=== PATIENT | male | born 1960 | race Caucasian/White ===

== ENCOUNTER → 2019-03-12 | Outpatient (CLI) | payer OTHER ==
--- NOTE | 2019-03-12 08:08 | US ---
EXAMINATION TYPE: US abdomen complete DATE OF EXAM: 03/12/2019 COMPARISON: NONE CLINICAL HISTORY: R94.5 Abnormal LFT F10.10 Alcohol Abuse. Pt states recent abnormal LFT's, ETOH abus e EXAM MEASUREMENTS: Liver Length: 16.7 cm Gallbladder Wall: 0.2 cm CBD: 0.4 cm Spleen: 9.0 cm Right Kidney: 13.3 x 4.5 x 6.2 cm Left Kidney: 12.7 x 5.6 x 4.8 cm Pancreas: wnl, tail obscured by overlying bowel gas Liver: Echogenic when compared to right kidney, coarse echotexture, heterogeneous. This most commonl y relates to hepatic steatosis and limits evaluation for hepatic masses. Gallbladder: wnl Evidence for sonographic Milan's sign: No CBD: wnl Spleen: Splenic granulomas are incidentally noted as echogenic foci in the splenic parenchyma. Right Kidney: wnl Left Kidney: wnl Upper IVC: wnl Abd Aorta: Atherosclerosis The liver is heterogenous. The intrahepatic portion of the IVC and proximal abdominal aorta are with in normal limits of size. There is no evidence of cholelithiasis. Common bile duct is unremarkable. The visualized portions of the pancreas are homogenous. The spleen demonstrates benign granulomas. Kidneys are symmetric and free of hydronephrosis. No renal lesions are seen. IMPRESSION: 1. Sonographic findings most commonly related to hepatic steatosis. Correlate with liver function eric t results. 2. Benign splenic granulomas.
== END | disposition home or self-care (01) ==
LOC: RADUSWWP 06:52
PROVIDERS: ATTEND Family Medicine
DX: D73.89 Other diseases of spleen (principal); R94.5 Abnormal results of liver function studies; F10.10 Alcohol abuse, uncomplicated
CPT/HCPCS: 76700

== ENCOUNTER → 2019-03-30 | Outpatient (CLI) | payer OTHER ==
--- NOTE | 2019-03-30 12:16 | CTL ---
EXAMINATION TYPE: CT Low Dose Lung DATE OF EXAM ORDERED: 03/30/2019 HISTORY: . Lung cancer screening CT DLP: [address] CTDI: 1.80 mGy Automated exposure control for dose reduction was used. SCREENING VISIT: COMPARISON: Ultrasound 03/12/2019 TECHNIQUE: Low dose computed tomography scan was performed through the chest at 1 mm thick sections a nd reconstructed images in the coronal plane at [address] DIAGNOSTIC QUALITY: Satisfactory FINDINGS: LUNG NODULES: There is a 2 mm subpleural nodule right upper lobe anterior segment within the superior segment of th e left upper lobe. These are too small to characterize. Most likely benign. Additional subpleural nod ule anterior segment left upper lobe and posterior margin right lung apex measuring 3 mm. There is a 2 mm nodule in the medial margin superior segment right upper lobe LUNGS: Changes of COPD are noted. Biapical pleural. Pleural thickening along the left lower lobe seen. No co nsolidative pneumonia. Tiny pleural effusion on the left no pneumothorax. HEART: Heart size is normal. There is three-vessel coronary artery calcifications. Atherosclerotic changes a daniela with no diagnostic evidence of aneurysm calcification along the aortic valve also noted. OTHER FINDINGS: Hypertrophic and degenerative change of the vertebral column. IMPRESSION: 1. There are multiple less than 5 mm subpleural nodules too small to characterize. 2. Coronary artery three-vessel calcification with calcification at the root of the aortic valve. 3. There is a area of density adjacent to the right adrenal gland and IVC which appear somewhat hyper dense which likely is artifactual. However, given the limitations of the exam incomplete evaluation t his region a dedicated CT scan of the abdomen is recommended. FOLLOW UP CT CHEST RECOMMENDATION: Follow-up CT of the chest in one year. However, CT of the abdomen is recommended as discussed above. CT LUNG RAD: Lung-Rad 2 Benign Appearance or Behavior
== END | disposition home or self-care (01) ==
LOC: RADCTMAIN 11:16
PROVIDERS: ATTEND Family Medicine
DX: Z12.2 Encounter for screening for malignant neoplasm of respiratory organs (principal); F17.210 Nicotine dependence, cigarettes, uncomplicated; R91.1 Solitary pulmonary nodule; I25.10 Atherosclerotic heart disease of native coronary artery without angina pectoris; J98.4 Other disorders of lung

== ENCOUNTER → 2019-04-28 | Outpatient (CLI) | payer OTHER ==
--- NOTE | 2019-04-28 13:57 | ECHOS ---
STRESS ECHOCARDIOGRAM INDICATIONS: Atherosclerosis BASELINE HEART RATE: 115 BASELINE BLOOD PRESSURE: 155/57 MAXIMUM HEART RATE: 159 MAXIMUM BLOOD PRESSURE: 201/58 85% MPHR: 136 100% MPHR: 160 METS: 5.6 MAXIMUM STAGE REACHED: 2 TOTAL EXERCISE TIME: 4:00 CLINICAL INFORMATION: Baseline EKG revealed normal sinus rhythm without significant ST-T changes. There was some baseline artifact noted. The patient walked on a standard Donny protocol for a total duration of 4 minutes, achieved a maximal heart rate of 159 beats per minute developed fatigue and shortness of breath. He did not have any angina or arrhythmia. Exercise capacity was quite limited. He had some resting tachycardia to begin with. EKG did not reveal any ST-segment changes to indicate ischemia. Sinus tachycardia was noted. No arrhythmia of significance was noted. By EKG criteria, this is considered as a negative stress test with very limited exercise capacity in a 59-year-old gentleman. Baseline echo images revealed normal wall motion and wall thickening of all segments. At peak exercise, there was good augmentation of left ventricular wall motion and wall thickening of all segments suggesting that there is no evidence of any stress-induced ischemia on this study. IMPRESSION: 1. Limited exercise capacity, probably because of poor conditioning. However, the stress test is negative for ischemia on the basis of EKG criteria. 2. Normal stress echocardiogram with limited exercise capacity. MMODL / IJN: [id number] /
--- NOTE | 2019-04-28 16:40 | CT ---
EXAMINATION TYPE: CT abdomen pelvis w con DATE OF EXAM: 04/28/2019 COMPARISON: None INDICATION: Abnormal findings on diagnostic imaging DLP: 606.90 mGycm, Automated exposure control for dose reduction was used. CONTRAST: 100 ml mL of Isovue 300. Study performed with Oral Contrast TECHNIQUE: Axial images were obtained from above the diaphragm to the pubic rami in the axial plane a t 5 mm thick sections. Reconstructed images are reviewed on the computer in the coronal plane. FINDINGS: Limited CT sections are obtained the lung bases. The lung bases are clear. CT ABDOMEN: Liver: There is mild fatty infiltration of the liver. No discrete masses or cysts are evident. Spleen: Normal Pancreas: Normal Adrenal glands: The adrenal glands are normal. Gallbladder: Normal Kidneys: No masses are evident. No hydronephrosis is present. No cysts are present. Delayed images were obtained through the kidneys, which remain unremarkable. Aorta: Vascular calcification is within the aorta. Inferior vena cava: Normal. CT PELVIS: Loops of bowel within the abdomen and pelvis are normal. There are loops of bowel which are incom pletely distended or lack oral contrast limiting their evaluation. Note is made of a few scattered di verticuli throughout the colon. No acute diverticulitis is evident. Appendix: Normal as visualized. Urinary bladder: Normal. Genitourinary structures: Prostate is slightly prominent. Osseous structures: No suspicious lytic or sclerotic lesions. IMPRESSIONS: 1. Diverticulosis without acute diverticulitis. 2. Mild fatty infiltration of the liver.
== END | disposition home or self-care (01) ==
LOC: RADNMMAIN 09:15
PROVIDERS: ATTEND Family Medicine
DX: I70.0 Atherosclerosis of aorta (principal); K76.0 Fatty (change of) liver, not elsewhere classified; K57.90 Diverticulosis of intestine, part unspecified, without perforation or abscess without bleeding; R93.3 Abnormal findings on diagnostic imaging of other parts of digestive tract
CPT/HCPCS: 93351; 74160; Q9967

== ENCOUNTER → 2021-07-18 | Outpatient (CLI) | payer OTHER ==
--- NOTE | 2021-07-19 11:51 | CT ---
EXAMINATION TYPE: CT abdomen pelvis w con DATE OF EXAM: 07/18/2021 COMPARISON: CT 04/28/2019 HISTORY: abdominal pain, distention, hernia CT DLP: 770.7 mGycm Automated exposure control for dose reduction was used. TECHNIQUE: Helical acquisition of images from the lung bases through the pelvis have been completed. CONTRAST: Performed with Oral Contrast and with IV Contrast, patient injected with 100 mL of Isovue 300. FINDINGS: Small right inguinal hernia contains fat. Some coronary artery calcification suspected. LUNG BASES: Small focus of calcified pleural plaque is present sagittal image 89, axial image #9 of t he left hemidiaphragm level. AORTA: Atheromatous changes are present. LIVER/GB: There is low attenuation within the liver, mildly heterogeneous appearance is somewhat lobu lar wall, fluid is present about the gallbladder, gallbladder wall thickening is present possibly rel ated to the ascites. PANCREAS: No significant abnormality is seen. SPLEEN: No significant abnormality is seen. ADRENALS: No significant abnormality is seen. KIDNEYS: No significant abnormality is seen. REPRODUCTIVE ORGANS: Prostate is enlarged, slightly inferior impression present on the urinary bladde r BOWEL: Colonic interposition noted anterior to the liver, there is no evident bowel obstruction. The colon shows a somewhat thickened wall. FREE AIR: No Free Air visible. ASCITES: Small amount of ascites is present to include areas around the liver and spleen. Ascites is developed in the interval. PELVIC ADENOPATHY: None visualized. RETROPERITONEAL ADENOPATHY: No Retroperitoneal Adenopathy visible. URINARY BLADDER: Mild thickening of the urinary bladder wall could be related to chronic bladder obs truction OSSEOUS STRUCTURES: There is degenerative disc disease, facet arthropathy especially in the lower tigre mbar spine. IMPRESSION: NEW SMALL AMOUNT OF ASCITES. CORRELATE FOR POSSIBLE CIRRHOSIS. INDETERMINATE COLONIC WALL THICKENING, DIFFICULT TO EXCLUDE A MUCOSAL LESION, CORRELATE TO EXCLUDE COLITIS, FINDINGS COULD BE RELATED TO CI RRHOSIS, ADDITIONAL FINDINGS ABOVE.
== END | disposition home or self-care (01) ==
LOC: RADCTMAIN 14:19
PROVIDERS: ATTEND Family Medicine
DX: R18.8 Other ascites (principal)
CPT/HCPCS: 74177; Q9967

== ENCOUNTER 2021-09-26 07:49 | Day surgery (SDC) | payer OTHER ==
[2021-09-21 16:29] VITALS: BMI 23.8
[~2021-09-26 07:49] MED LIST: LACTATED RINGERS 1,000 ML IV SCH
[2021-09-26 08:56] VITALS: TEMP 98.1
[2021-09-26] MEDS ORDERED: PROPOFOL 10 MG/ML 20 ML VIAL IV ONE (09:38)
--- NOTE | 2021-09-26 09:47 | P.PCN ---
Date of Procedure: 09/26/21 Procedure(s) Performed: BRIEF HISTORY: Patient is a 61-year-old, pleasant, white male with history of alcohol abuse and recently diagnosed cirrhosis of the liver scheduled for an upper endoscopy as a part of screening for esophageal varices. PROCEDURE PERFORMED: Esophagogastroduodenoscopy. PREOPERATIVE DIAGNOSIS: Cirrhosis of the liver screening for esophageal varices. IV sedation per anesthesia. PROCEDURE: After informed consent was obtained, the patient was brought into the endoscopy unit. IV sedation was administered by Anesthesia under continuous monitoring. Initially the Olympus GIF-140 video endoscope was inserted into the mouth. Esophagus intubated without any difficulty. It was gradually advanced into the stomach and duodenum and carefully examined. The bulb and the second part of the duodenum appeared normal. The scope at this time was withdrawn to the stomach, adequately insufflated with air, and upon careful examination, mucosa of the antrum, appeared normal. There was mild portal hypertensive gastropathy seen. The rest of body, cardia and the fundus appeared normal. The scope was then withdrawn into the esophagus. The GE junction was located at 39 cm from the incisors. The esophagus appeared normal. There was small distal esophageal varices noted. There were no erosions or ulcerations seen and the patient tolerated the procedure well. IMPRESSION: 1. Small distal esophageal varices. 2. No evidence of gastric varices. 3. Mild portal hypertensive gastropathy RECOMMENDATIONS: The findings of this examination were discussed with the patient as well as his family. He was advised to have a repeat EGD in 2-3 years to follow-up esophageal varices.
[2021-09-26 09:57] VITALS: RESP 16
[2021-09-26 10:29] VITALS: BP 116/70; PULSE 68
== END 2021-09-26 10:57 | disposition home or self-care (01) ==
LOC: ORWHC2ENDO 07:49
PROVIDERS: ATTEND Internal Medicine Gastroenterology
DX: I85.00 Esophageal varices without bleeding (principal); K76.6 Portal hypertension; K70.30 Alcoholic cirrhosis of liver without ascites; F17.210 Nicotine dependence, cigarettes, uncomplicated; Z79.899 Other long term (current) drug therapy
CPT/HCPCS: 43235; J2704

== ENCOUNTER 2021-12-25 12:32 | Day surgery (SDC) | payer OTHER ==
[2021-12-25 13:15] LABS: Mean Platelet Volume 7.3; Platelet Count 549 k/uL (150-450)
[2021-12-25 13:16] VITALS: RESP 16; TEMP 98.2
[2021-12-25 13:27] LABS: African American GFR (CKD) >90 (>60 ml/min/1.73 sqM); Non-African American GFR(CKD) >90 (>60 ml/min/1.73 sqM)
[2021-12-25 13:29] LABS: INR 1.1 (<1.2); Prothrombin Time 11.5 sec (9.0-12.0)
[2021-12-25] MEDS ORDERED: LIDOCAINE 1% PF 10 MG/ML (5 ML AMP) SQ ONE (13:30)
[2021-12-25] MEDS: ALBUMIN HUMAN 25% 50 ML in EMPTY BAG 1 BAG IVPB SCH ×4 (13:47→14:37)
[2021-12-25 15:20] VITALS: BP 110/63; PULSE 69
[2021-12-26 00:54] LABS: Appearance,BF Slightly Cloudy
[2021-12-26 06:10] LABS: Albumin, Fluid Source Peritoneal Fluid; T. Protein, Body Fluid Source Peritoneal Fluid; Total Protein, Body Fluid 2980 mg/dL
--- NOTE | 2021-12-26 08:34 | US ---
Ultrasound-guided paracentesis. DATE OF EXAM: 12/25/2021 CLINICAL HISTORY: Ascites The procedure was discussed with the patient. The risks, complications, benefits, and alternatives we re discussed and any questions were answered. Informed consent was obtained. The patient was placed s upine on the ultrasound table and prepped and draped in the usual sterile fashion. All elements of maximal barrier technique were utilized. Under ultrasound guidance, access into the right lower quadrant was obtained, via the paracentesis catheter system and direct ultrasound guidanc e. Approximately 9.3 liters of straw-colored fluid was removed. The patient was stable throughout the pr ocedure and remained stable upon discharge from Department of Radiology. IMPRESSION: Successful paracentesis under ultrasound guidance.
== END 2021-12-25 15:25 | disposition home or self-care (01) ==
LOC: RADPROMAIN 12:32
PROVIDERS: ATTEND Internal Medicine Gastroenterology
DX: R18.8 Other ascites (principal)
CPT/HCPCS: 82042; 89050; 82565; 85049; 85610; 84157; 36415; 49083; J2001; P9047; 88108; 88305

== ENCOUNTER 2022-01-15 08:51 | Day surgery (SDC) | payer OTHER ==
[2022-01-15 09:38] LABS: Basophils # (A) 0.1 k/uL (0-0.2); Basophils % (A) 1 %; Eosinophils # (A) 0.5 k/uL (0-0.7); Eosinophils % (A) 6 %; HCT 40.4 % (39.0-53.0); HGB 13.1 gm/dL (13.0-17.5); Lymphocytes # (A) 1.3 k/uL (1.0-4.8); Lymphocytes % (A) 16 %; MCH 32.5 pg (25.0-35.0); MCHC 32.4 g/dL (31.0-37.0); MCV 100.5 fL (80.0-100.0); Mean Platelet Volume 7.1; Monocytes # (A) 0.9 k/uL (0-1.0); Monocytes % (A) 12 %; Neutrophils # (A) 4.7 k/uL (1.3-7.7); Neutrophils % (A) 61 %; Platelet Count 520 k/uL (150-450); RBC 4.02 m/uL (4.30-5.90); RDW 12.4 % (11.5-15.5); WBC 7.7 k/uL (3.8-10.6)
[2022-01-15 09:39] VITALS: RESP 16; TEMP 98.3
[2022-01-15 09:52] LABS: INR 1.1 (<1.2); Prothrombin Time 11.9 sec (9.0-12.0)
[2022-01-15 10:03] LABS: ALT 16 U/L (4-49); AST 33 U/L (17-59); African American GFR (CKD) >90 (>60 ml/min/1.73 sqM); Alkaline Phosphatase 145 U/L (38-126); Anion Gap 7 mmol/L; Blood Urea Nitrogen 11 mg/dL (9-20); Carbon Dioxide 25 mmol/L (22-30); Chloride 96 mmol/L (98-107); Glucose 95 mg/dL (74-99); Non-African American GFR(CKD) >90 (>60 ml/min/1.73 sqM); Potassium 4.9 mmol/L (3.5-5.1); Sodium 128 mmol/L (137-145); Total Protein 7.1 g/dL (6.3-8.2)
[2022-01-15] MEDS: ALBUMIN HUMAN 25% 50 ML in EMPTY BAG 1 BAG IVPB SCH ×4 (10:06→10:56)
[2022-01-15] MEDS ORDERED: LIDOCAINE 1% PF 10 MG/ML (5 ML AMP) SQ ONE (10:18)
[2022-01-15 12:02] VITALS: BP 134/71; PULSE 74
--- NOTE | 2022-01-15 13:41 | US ---
EXAMINATION TYPE: US paracentesis abd w/image DATE OF EXAM: 01/15/2022 COMPARISON: NONE HISTORY: Ascites. PROCEDURE: Maximal barrier technique was utilized. The skin overlying a suitable pocket of fluid was localized with ultrasound and the overlying skin was prepped and draped. Ultrasound was utilized with sterile technique. Lidocaine was used for local anesthesia and a skin estela made with a scalpel. Catheter was advanced under direct ultrasound guidance into a suitable pocket of fluid and approximately 10.8 lite rs of ascitic fluid were removed. Catheter was withdrawn and hemostasis achieved. There is no immed iate complication; the patient is discharged in stable condition. IMPRESSION: STATUS POST ULTRASOUND GUIDED PARACENTESIS FOR PALLIATION OF ASCITES. THIS PROCEDURE WA S PERFORMED BY THE UNDERSIGNED.
[2022-01-15 20:43] LABS: Appearance,BF Hazy
[2022-01-17 23:14] LABS: Albumin, Fluid Source Ascites; T. Protein, Body Fluid Source Ascites; Total Protein, Body Fluid 2760 mg/dL
== END 2022-01-15 12:02 | disposition home or self-care (01) ==
LOC: RADPROMAIN 08:51
PROVIDERS: ATTEND Internal Medicine Gastroenterology
DX: R18.8 Other ascites (principal); Z88.8 Allergy status to other drugs, medicaments and biological substances; Z79.899 Other long term (current) drug therapy; F17.200 Nicotine dependence, unspecified, uncomplicated; Z80.9 Family history of malignant neoplasm, unspecified
CPT/HCPCS: 88108; 88305; 80053; 82042; 89050; 85025; 85610; 84157; 36415; 49083; J2001; P9047

== ENCOUNTER 2022-01-29 08:46 | Day surgery (SDC) | payer OTHER ==
[2022-01-29 09:25] LABS: Mean Platelet Volume 6.6; Platelet Count 540 k/uL (150-450)
[2022-01-29 09:29] VITALS: RESP 16; TEMP 98.3
[2022-01-29 09:35] LABS: African American GFR (CKD) >90 (>60 ml/min/1.73 sqM); Non-African American GFR(CKD) >90 (>60 ml/min/1.73 sqM)
[2022-01-29 09:44] LABS: Prothrombin Time 10.6 sec (9.0-12.0)
[2022-01-29] MEDS: ALBUMIN HUMAN 25% 50 ML in EMPTY BAG 1 BAG IVPB SCH ×4 (09:59→11:50)
[2022-01-29] MEDS ORDERED: LIDOCAINE 1% PF 10 MG/ML (5 ML AMP) SQ ONE (10:30)
[2022-01-29 11:26] VITALS: BP 112/68; PULSE 69
--- NOTE | 2022-01-29 15:21 | US ---
EXAMINATION TYPE: US paracentesis abd w/image DATE OF EXAM: 01/29/2022 COMPARISON: NONE HISTORY: Ascites. PROCEDURE: Maximal barrier technique was utilized. The skin overlying a suitable pocket of fluid was localized with ultrasound and the overlying skin was prepped and draped. Ultrasound was utilized with sterile technique. Lidocaine was used for local anesthesia and a skin estela made with a scalpel. Catheter was advanced under direct ultrasound guidance into a suitable pocket of fluid and approximately 5.3 liter s of ascites fluid were removed. Catheter was withdrawn and hemostasis achieved. There is no immedi ate complication; the patient is discharged in stable condition. IMPRESSION: STATUS POST ULTRASOUND GUIDED PARACENTESIS FOR PALLIATION OF ASCITES. THIS PROCEDURE WA S PERFORMED BY THE UNDERSIGNED.
== END 2022-01-29 11:40 | disposition home or self-care (01) ==
LOC: RADPROMAIN 08:46
PROVIDERS: ATTEND Internal Medicine Gastroenterology
DX: R18.8 Other ascites (principal); Z88.8 Allergy status to other drugs, medicaments and biological substances; Z79.899 Other long term (current) drug therapy; F17.200 Nicotine dependence, unspecified, uncomplicated; Z80.9 Family history of malignant neoplasm, unspecified
CPT/HCPCS: 82565; 85049; 85610; 36415; 49083; J2001; P9047

== ENCOUNTER 2022-02-12 08:55 | Day surgery (SDC) | payer OTHER ==
[2022-02-12 09:42] LABS: Mean Platelet Volume 6.8; Platelet Count 457 k/uL (150-450)
[2022-02-12 09:49] VITALS: TEMP 97.6
[2022-02-12 09:53] LABS: INR 1.1 (<1.2); Prothrombin Time 11.7 sec (9.0-12.0)
[2022-02-12 09:57] LABS: African American GFR (CKD) >90 (>60 ml/min/1.73 sqM); Non-African American GFR(CKD) >90 (>60 ml/min/1.73 sqM)
[2022-02-12] MEDS: ALBUMIN HUMAN 25% 50 ML in EMPTY BAG 1 BAG IVPB SCH ×2 (11:04→11:24)
[2022-02-12 11:06] VITALS: RESP 18
[2022-02-12 11:43] VITALS: BP 112/62; PULSE 69
--- NOTE | 2022-02-12 15:56 | US ---
Ultrasound-guided paracentesis. DATE OF EXAM: 02/12/2022 CLINICAL HISTORY: Ascites The procedure was discussed with the patient. The risks, complications, benefits, and alternatives we re discussed and any questions were answered. Informed consent was obtained. The patient was placed s upine on the ultrasound table and prepped and draped in the usual sterile fashion. All elements of maximal barrier technique were utilized. Under ultrasound guidance, access into the right lower quadrant was obtained, via the paracentesis catheter system and direct ultrasound guidanc e. Approximately 9 liters of straw-colored fluid was removed. The patient was stable throughout the proc edure and remained stable upon discharge from Department of Radiology. IMPRESSION: Successful paracentesis under ultrasound guidance.
[2022-02-13 20:12] LABS: Appearance,BF Clear
[2022-02-14 01:12] LABS: Albumin, Fluid Source Paracentesis Fluid; T. Protein, Body Fluid Source Paracentesis Fluid; Total Protein, Body Fluid 2600 mg/dL
== END 2022-02-12 11:50 | disposition home or self-care (01) ==
LOC: RADPROMAIN 08:55
PROVIDERS: ATTEND Internal Medicine Gastroenterology
DX: R18.8 Other ascites (principal); Z88.8 Allergy status to other drugs, medicaments and biological substances; Z79.899 Other long term (current) drug therapy; F17.200 Nicotine dependence, unspecified, uncomplicated; Z80.9 Family history of malignant neoplasm, unspecified
CPT/HCPCS: 82042; 89050; 82565; 85049; 85610; 84157; 36415; 49083; P9047; 88108; 88305

== ENCOUNTER 2022-02-26 09:13 | Day surgery (SDC) | payer OTHER ==
[2022-02-26 09:42] LABS: Platelet Count 497 k/uL (150-450)
[2022-02-26 09:48] LABS: INR 1.1 (<1.2); Prothrombin Time 11.5 sec (9.0-12.0)
[2022-02-26 09:53] VITALS: TEMP 98.1
[2022-02-26 09:54] LABS: African American GFR (CKD) >90 (>60 ml/min/1.73 sqM); Non-African American GFR(CKD) >90 (>60 ml/min/1.73 sqM)
[2022-02-26] MEDS: ALBUMIN HUMAN 25% 50 ML in EMPTY BAG 1 BAG IVPB SCH ×4 (10:02→11:08)
[2022-02-26 11:44] VITALS: BP 109/63; PULSE 70; RESP 17
--- NOTE | 2022-02-26 13:40 | US ---
Ultrasound-guided paracentesis. DATE OF EXAM: 02/26/2022 CLINICAL HISTORY: Ascites The procedure was discussed with the patient. The risks, complications, benefits, and alternatives we re discussed and any questions were answered. Informed consent was obtained. The patient was placed s upine on the ultrasound table and prepped and draped in the usual sterile fashion. All elements of maximal barrier technique were utilized. Under ultrasound guidance, access into the right lower quadrant was obtained, via the paracentesis catheter system and direct ultrasound guidanc e. Approximately 9 liters of straw-colored fluid was removed. The patient was stable throughout the proc edure and remained stable upon discharge from Department of Radiology. IMPRESSION: Successful paracentesis under ultrasound guidance.
== END 2022-02-26 11:35 | disposition home or self-care (01) ==
LOC: RADPROMAIN 09:13
PROVIDERS: ATTEND Internal Medicine Gastroenterology
DX: R18.8 Other ascites (principal); Z88.8 Allergy status to other drugs, medicaments and biological substances; Z79.899 Other long term (current) drug therapy; F17.200 Nicotine dependence, unspecified, uncomplicated; Z80.9 Family history of malignant neoplasm, unspecified
CPT/HCPCS: 82565; 85049; 85610; 36415; 49083; P9047

== ENCOUNTER 2022-03-08 16:33 | Emergency (ER) | payer OTHER ==
[2022-03-08] MEDS ORDERED: SODIUM CHLORIDE 0.9% 1,000 ML IV STA (18:23)
--- NOTE | 2022-03-08 18:47 | ED ---
General Adult HPI - General Chief complaint: Recheck/Abnormal Lab/Rx Stated complaint: low sodium Time Seen by Provider: 03/08/22 18:12 Source: patient Mode of arrival: ambulatory Limitations: no limitations - History of Present Illness Initial comments: Dictation was produced using [employer] dictation software. please excuse any grammatical, word or spelling errors. Chief Complaint: 61-year-old male past medical history of liver cirrhosis, liver failure presents emergency department for hyponatremia History of Present Illness: 1-year-old male he presents emergency department for abnormal outpatient lab. He was told that his sodium is very low. He had labs drawn here in our facility in the outpatient lab showed a sodium of 114. Patient had his labs drawn after being seen in the office on Friday for surveillance blood work. Patient gets paracenteses every 2 weeks. Patient states that he feels like he is having accumulation of ascitic fluid in his abdomen again. Patient is due for paracentesis soon. Denies any fever. Denies any pain complaints. No shortness of breath. The ROS documented in this emergency department record has been reviewed and confirmed by me. Those systems with pertinent positive or negative responses have been documented in the HPI. All other systems are other negative and/or noncontributory. PHYSICAL EXAM: General Impression: Alert and oriented x3, not in acute distress HEENT: Normocephalic atraumatic, extra-ocular movements intact, pupils equal and reactive to light bilaterally, mucous membranes moist. Cardiovascular: Heart regular rate and rhythm Chest: Able to complete full sentences, no retractions, no tachypnea Abdomen: abdomen soft, non-tender, non-distended, no organomegaly, positive fluid wave Musculoskeletal: Pulses present and equal in all extremities, no peripheral edema Motor: no focal deficits noted Neurological: CN II-XII grossly intact, no focal motor or sensory deficits noted Skin: Intact with no visualized rashes Psych: Normal affect and mood ED course: Male presents emergency department for hyponatremia. Patient has history of liver cirrhosis. He gets paracentesis every 2 weeks. Vital signs upon arrival are within acceptable limits. Labs were rechecked. CBC is unremarkable. Sodium is 115. Metabolic panel was otherwise unremarkable. Patient given IV fluids. Patient be admitted for hyponatremia. Patient having any symptoms of severe hyponatremia. He is well-appearing at bedside without any complaints. No indication for rapid sodium correction. Laboratory evaluation obtained. CBC is unremarkable. Metabolic panel shows sodium of 1:15. There is appeared to be a non-gap acidosis. Patient started on IV fluids. Hyponatremia slightly hypervolemic secondary to cirrhosis. Patient be admitted to [facility] for further care. EKG interpretation: Ventricular rate 63, sinus rhythm, KY interval 180, QS 104, QTC 395. No KY prolongation, no QTC prolongation, no ST or T-wave changes noted. Overall, this EKG is unremarkable - Related Data Home Medications Medication Instructions Recorded Confirmed Losartan Potassium [Cozaar] 100 mg PO DAILY 07/07/19 03/08/22 dilTIAZem HCL [Diltiazem ER] 120 mg PO DAILY 07/07/19 03/08/22 Folic Acid 1 mg PO DAILY 09/21/21 03/08/22 Furosemide [Lasix] 40 mg PO BID@0600,1400 09/21/21 03/08/22 Spironolactone [Aldactone] 100 mg PO DAILY 09/21/21 03/08/22 Pantoprazole [Protonix] 40 mg PO DAILY 12/17/21 03/08/22 buPROPion XL [Wellbutrin XL] 150 mg PO DAILY 03/08/22 03/08/22 Allergies Allergy/AdvReac Type Severity Reaction Status Date / Time lisinopril AdvReac Rapid Verified 03/08/22 19:20 Heart Rate/itching Review of Systems ROS Statement: Those systems with pertinent positive or pertinent negative responses have been documented in the HPI. ROS Other: All systems not noted in ROS Statement are negative. Past Medical History Past Medical History: Hypertension, Liver Disease, Osteoarthritis (OA) History of Any Multi-Drug Resistant Organisms: None Reported Past Surgical History: No Surgical Hx Reported Additional Past Surgical History / Comment(s): COLONOSCOPY, paracentesis Past Anesthesia/Blood Transfusion Reactions: No Reported Reaction Past Psychological History: No Psychological Hx Reported Smoking Status: Current every day smoker Past Alcohol Use History: None Reported Past Drug Use History: None Reported - Past Family History Mother Family Medical History: Cancer Brother(s) Family Medical History: Cancer General Exam Limitations: no limitations Course Vital Signs 03/08/22 03/08/22 17:00 19:36 Temperature 98.5 F Pulse Rate 69 80 Respiratory 22 20 Rate Blood Pressure 101/58 103/67 O2 Sat by Pulse 100 98 Oximetry Medical Decision Making - Lab Data Result diagrams: 03/08/22 18:38 03/08/22 18:38 Lab Results 03/08/22 03/08/22 Range/Units 18:38 18:38 WBC 10.0 (3.8-10.6) k/uL RBC 3.57 L (4.30-5.90) m/uL Hgb 11.6 L (13.0-17.5) gm/dL Hct 34.7 L (39.0-53.0) % MCV 97.2 (80.0-100.0) fL MCH 32.5 (25.0-35.0) pg MCHC 33.5 (31.0-37.0) g/dL RDW 13.4 (11.5-15.5) % Plt Count 611 H (150-450) k/uL MPV 7.3 Neutrophils % 67 % Lymphocytes % 14 % Monocytes % 12 % Eosinophils % 3 % Basophils % 1 % Neutrophils # 6.7 (1.3-7.7) k/uL Lymphocytes # 1.4 (1.0-4.8) k/uL Monocytes # 1.2 H (0-1.0) k/uL Eosinophils # 0.3 (0-0.7) k/uL Basophils # 0.1 (0-0.2) k/uL Sodium 115 L* (137-145) mmol/L Potassium 5.2 H (3.5-5.1) mmol/L Chloride 87 L (98-107) mmol/L Carbon Dioxide 19 L (22-30) mmol/L Anion Gap 9 mmol/L BUN 13 (9-20) mg/dL Creatinine 0.85 (0.66-1.25) mg/dL Est GFR (CKD-EPI)AfAm >90 (>60 ml/min/1.73 sqM) Est GFR (CKD-EPI)NonAf >90 (>60 ml/min/1.73 sqM) Glucose 86 (74-99) mg/dL Calcium 8.6 (8.4-10.2) mg/dL Magnesium 1.7 (1.6-2.3) mg/dL Critical Care Time Critical Care Time: Yes Total Critical Care Time: 33 Disposition Clinical Impression: Hyponatremia Disposition: ADMITTED IP TO THIS HOSP Condition: Fair Referrals: Nitin Ndiaye DO [Primary Care Provider] - 1-2 days Decision Time: 19:45
[2022-03-08 19:02] LABS: Basophils # (A) 0.1 k/uL (0-0.2); Basophils % (A) 1 %; Eosinophils # (A) 0.3 k/uL (0-0.7); Eosinophils % (A) 3 %; HCT 34.7 % (39.0-53.0); HGB 11.6 gm/dL (13.0-17.5); Lymphocytes # (A) 1.4 k/uL (1.0-4.8); Lymphocytes % (A) 14 %; MCH 32.5 pg (25.0-35.0); MCHC 33.5 g/dL (31.0-37.0); MCV 97.2 fL (80.0-100.0); Mean Platelet Volume 7.3; Monocytes # (A) 1.2 k/uL (0-1.0); Monocytes % (A) 12 %; Neutrophils # (A) 6.7 k/uL (1.3-7.7); Neutrophils % (A) 67 %; Platelet Count 611 k/uL (150-450); RBC 3.57 m/uL (4.30-5.90); RDW 13.4 % (11.5-15.5)
[2022-03-08 19:06] LABS: African American GFR (CKD) >90 (>60 ml/min/1.73 sqM); Anion Gap 9 mmol/L; Blood Urea Nitrogen 13 mg/dL (9-20); Calcium 8.6 mg/dL (8.4-10.2); Carbon Dioxide 19 mmol/L (22-30); Chloride 87 mmol/L (98-107); Glucose 86 mg/dL (74-99); Magnesium 1.7 mg/dL (1.6-2.3); Non-African American GFR(CKD) >90 (>60 ml/min/1.73 sqM); Potassium 5.2 mmol/L (3.5-5.1)
[2022-03-08 19:12] LABS: Sodium 115 mmol/L (137-145)
[2022-03-08] MEDS ORDERED: SODIUM CHLORIDE 0.9% 1,000 ML IV SCH (19:45)
[2022-03-08] MEDS ORDERED: NALOXONE 0.4 MG/ML 1 ML VIAL IV PRN (19:45)
[2022-03-08 21:13] LABS: Prothrombin Time 10.7 sec (9.0-12.0)
[2022-03-08 21:14] LABS: ALT 16 U/L (4-49); AST 34 U/L (17-59); African American GFR (CKD) >90 (>60 ml/min/1.73 sqM); Albumin 2.8 g/dL (3.5-5.0); Alkaline Phosphatase 121 U/L (38-126); Anion Gap 9 mmol/L; Blood Urea Nitrogen 12 mg/dL (9-20); Calcium 8.2 mg/dL (8.4-10.2); Carbon Dioxide 18 mmol/L (22-30); Chloride 89 mmol/L (98-107); Glucose 83 mg/dL (74-99); Non-African American GFR(CKD) >90 (>60 ml/min/1.73 sqM); Potassium 5.1 mmol/L (3.5-5.1); Total Bilirubin 0.8 mg/dL (0.2-1.3); Total Protein 5.1 g/dL (6.3-8.2)
[2022-03-08 21:33] LABS: Sodium 116 mmol/L (137-145)
--- NOTE | 2022-03-08 21:35 | ED ---
Medical Decision Making - Medical Decision Making 61 male to the ED c/o abdominal pain with ascites, significantly low Na, normal MS patient is acting appropriately. Patient at this point will be transferred to [facility] for GI coverage, patient was denied admission or Hospital for lack of GI, - Lab Data Result diagrams: 03/08/22 18:38 03/08/22 20:43 Lab Results 03/08/22 03/08/22 03/08/22 Range/Units 18:38 18:38 20:43 WBC 10.0 (3.8-10.6) k/uL RBC 3.57 L (4.30-5.90) m/uL Hgb 11.6 L (13.0-17.5) gm/dL Hct 34.7 L (39.0-53.0) % MCV 97.2 (80.0-100.0) fL MCH 32.5 (25.0-35.0) pg MCHC 33.5 (31.0-37.0) g/dL RDW 13.4 (11.5-15.5) % Plt Count 611 H (150-450) k/uL MPV 7.3 Neutrophils % 67 % Lymphocytes % 14 % Monocytes % 12 % Eosinophils % 3 % Basophils % 1 % Neutrophils # 6.7 (1.3-7.7) k/uL Lymphocytes # 1.4 (1.0-4.8) k/uL Monocytes # 1.2 H (0-1.0) k/uL Eosinophils # 0.3 (0-0.7) k/uL Basophils # 0.1 (0-0.2) k/uL PT 10.7 (9.0-12.0) sec INR 1.0 (<1.2) APTT 27.0 (22.0-30.0) sec Sodium 115 L* (137-145) mmol/L Potassium 5.2 H (3.5-5.1) mmol/L Chloride 87 L (98-107) mmol/L Carbon Dioxide 19 L (22-30) mmol/L Anion Gap 9 mmol/L BUN 13 (9-20) mg/dL Creatinine 0.85 (0.66-1.25) mg/dL Est GFR (CKD-EPI)AfAm >90 (>60 ml/min/1.73 sqM) Est GFR (CKD-EPI)NonAf >90 (>60 ml/min/1.73 sqM) Glucose 86 (74-99) mg/dL Calcium 8.6 (8.4-10.2) mg/dL Magnesium 1.7 (1.6-2.3) mg/dL Total Bilirubin (0.2-1.3) mg/dL AST (17-59) U/L ALT (4-49) U/L Alkaline Phosphatase (38-126) U/L Total Protein (6.3-8.2) g/dL Albumin (3.5-5.0) g/dL 03/08/22 03/08/22 Range/Units 20:43 20:43 WBC (3.8-10.6) k/uL RBC (4.30-5.90) m/uL Hgb (13.0-17.5) gm/dL Hct (39.0-53.0) % MCV (80.0-100.0) fL MCH (25.0-35.0) pg MCHC (31.0-37.0) g/dL RDW (11.5-15.5) % Plt Count (150-450) k/uL MPV Neutrophils % % Lymphocytes % % Monocytes % % Eosinophils % % Basophils % % Neutrophils # (1.3-7.7) k/uL Lymphocytes # (1.0-4.8) k/uL Monocytes # (0-1.0) k/uL Eosinophils # (0-0.7) k/uL Basophils # (0-0.2) k/uL PT (9.0-12.0) sec INR (<1.2) APTT (22.0-30.0) sec Sodium 116 L* (137-145) mmol/L Potassium 5.1 (3.5-5.1) mmol/L Chloride 89 L (98-107) mmol/L Carbon Dioxide 18 L (22-30) mmol/L Anion Gap 9 mmol/L BUN 12 (9-20) mg/dL Creatinine 0.75 0.77 (0.66-1.25) mg/dL Est GFR (CKD-EPI)AfAm >90 (>60 ml/min/1.73 sqM) Est GFR (CKD-EPI)NonAf >90 (>60 ml/min/1.73 sqM) Glucose 83 (74-99) mg/dL Calcium 8.2 L (8.4-10.2) mg/dL Magnesium (1.6-2.3) mg/dL Total Bilirubin 0.8 (0.2-1.3) mg/dL AST 34 (17-59) U/L ALT 16 (4-49) U/L Alkaline Phosphatase 121 (38-126) U/L Total Protein 5.1 L (6.3-8.2) g/dL Albumin 2.8 L (3.5-5.0) g/dL - Radiology Data Radiology results: report reviewed (Prior computed tomography scan does show liver cirrhosis) Disposition Clinical Impression: Hyponatremia, Ascites, Liver cirrhosis Disposition: OTHER INSTITUTION NOT DEFINED Condition: Fair Is patient prescribed a controlled substance at d/c from ED?: No Referrals: Nitin Ndiaye DO [Primary Care Provider] - 1-2 days - Out of Hospital Transfer - Req. Specs Out of Hospital Transfer - Requested Specifics: Other Emergency Center ([facility])
[2022-03-08 23:43] VITALS: RESP 16
[2022-03-09 00:28] VITALS: BP 98/60; PULSE 75; TEMP 98.6
== END 2022-03-09 00:28 | disposition critical access hospital (66) ==
LOC: EC 16:33 → UNDOADMIN 19:45 → 3SCARD 19:45 → EC 21:57 → 3SCARD 21:57 → EC 23:09
DX: E87.1 Hypo-osmolality and hyponatremia (principal); K74.60 Unspecified cirrhosis of liver; R18.8 Other ascites; I10 Essential (primary) hypertension
CPT/HCPCS: 36415; 80048; 80053; 82575; 83735; 83930; 85025; 85610; 85730; 93005; 96360; 96361; 99284

== ENCOUNTER → 2022-03-08 | Outpatient (CLI) | payer OTHER ==
[2022-03-08 13:34] LABS: Basophils % (A) 0 %; Eosinophils # (A) 0.1 k/uL (0-0.7); Eosinophils % (A) 2 %; HCT 35.8 % (39.0-53.0); HGB 11.9 gm/dL (13.0-17.5); Lymphocytes # (A) 0.9 k/uL (1.0-4.8); Lymphocytes % (A) 11 %; MCHC 33.1 g/dL (31.0-37.0); MCV 99.7 fL (80.0-100.0); Macrocytosis Slight; Mean Platelet Volume 8.6; Monocytes # (A) 1.1 k/uL (0-1.0); Monocytes % (A) 13 %; Neutrophils # (A) 6.3 k/uL (1.3-7.7); Neutrophils % (A) 71 %; Platelet Count 706 k/uL (150-450); RBC 3.59 m/uL (4.30-5.90); RDW 14.1 % (11.5-15.5); WBC 8.9 k/uL (3.8-10.6)
[2022-03-08 13:41] LABS: ALT 18 U/L (4-49); AST 40 U/L (17-59); African American GFR (CKD) >90 (>60 ml/min/1.73 sqM); Albumin 3.3 g/dL (3.5-5.0); Albumin/Globulin Ratio 1.4; Alkaline Phosphatase 162 U/L (38-126); Anion Gap 10 mmol/L; Blood Urea Nitrogen 11 mg/dL (9-20); Calcium 8.4 mg/dL (8.4-10.2); Carbon Dioxide 20 mmol/L (22-30); Chloride 84 mmol/L (98-107); Globulin 2.4 g/dL; Glucose 88 mg/dL (74-99); Non-African American GFR(CKD) >90 (>60 ml/min/1.73 sqM); Potassium 5.9 mmol/L (3.5-5.1); Total Bilirubin 1.2 mg/dL (0.2-1.3); Total Protein 5.7 g/dL (6.3-8.2)
[2022-03-08 13:47] LABS: Sodium 114 mmol/L (137-145)
[2022-03-08 20:01] LABS: % Iron Saturation 38.25 (15.00-50.00); Iron 113 ug/dL (65-175); Total Iron Binding Capacity 295 ug/dL (228-460)
== END | disposition home or self-care (01) ==
LOC: LABWHC1 10:43
PROVIDERS: ATTEND Physician Assistant
DX: D64.9 Anemia, unspecified (principal); E87.5 Hyperkalemia; E87.1 Hypo-osmolality and hyponatremia; E16.1 Other hypoglycemia
CPT/HCPCS: 36415; 80053; 82607; 82728; 82746; 83540; 83550; 85025

== ENCOUNTER 2022-04-23 08:46 | Day surgery (SDC) | payer OTHER ==
[2022-04-23 09:27] LABS: Mean Platelet Volume 8.5; Platelet Count 548 k/uL (150-450)
[2022-04-23 09:31] LABS: African American GFR (CKD) >90 (>60 ml/min/1.73 sqM); Non-African American GFR(CKD) >90 (>60 ml/min/1.73 sqM)
[2022-04-23 09:33] LABS: Prothrombin Time 11.1 sec (9.0-12.0)
[2022-04-23 09:44] VITALS: TEMP 97.9
[2022-04-23] MEDS: ALBUMIN HUMAN 25% 50 ML in EMPTY BAG 1 BAG IVPB SCH ×4 (10:02→10:50)
[2022-04-23 10:57] VITALS: RESP 16
[2022-04-23 11:54] VITALS: BP 121/69; PULSE 76
--- NOTE | 2022-04-23 12:46 | US ---
EXAMINATION TYPE: US paracentesis abd w/image DATE OF EXAM: 04/23/2022 COMPARISON: NONE HISTORY: Ascites. PROCEDURE: Maximal barrier technique was utilized. The skin overlying a suitable pocket of fluid was localized with ultrasound and the overlying skin was prepped and draped. Ultrasound was utilized with sterile technique. Lidocaine was used for local anesthesia and a skin estela made with a scalpel. Catheter was advanced under direct ultrasound guidance into a suitable pocket of fluid and approximately 9.7 liter s of ascites fluid were removed. Catheter was withdrawn and hemostasis achieved. There is no immedi ate complication; the patient is discharged in stable condition. IMPRESSION: STATUS POST ULTRASOUND GUIDED PARACENTESIS FOR PALLIATION OF ASCITES. THIS PROCEDURE WA S PERFORMED BY THE UNDERSIGNED.
== END 2022-04-23 11:50 | disposition home or self-care (01) ==
LOC: RADPROMAIN 08:46
PROVIDERS: ATTEND Internal Medicine Gastroenterology
DX: R18.8 Other ascites (principal)
CPT/HCPCS: 82565; 85049; 85610; 36415; 49083; P9047

== ENCOUNTER → 2022-04-30 | Outpatient (CLI) | payer OTHER ==
--- NOTE | 2022-04-30 11:38 | CA ---
Transthoracic Echo Report Name: Gerard Lala Age: 62 Gender: M : 1960 Exam Date: 04/30/2022 08:40 Exam Location: [place] [facility] Ht (in): 74 Wt (lb): 145 Ordering Physician: Nitin Ndiaye DO Attending/Referring Phys: Kimi Mace PAC Channeler Runner Dalila Nathan RDCS Procedure CPT: Indications: R53.83 fatigue Cardiac Hx: Technical Quality: Good Contrast 1: Total Dose (mL): Contrast 2: Total Dose (mL): MEASUREMENTS (Male / Female) Normal Values 2D ECHO LV Diastolic Diameter PLAX 3.5 cm 4.2 - 5.9 / 3.9 - 5.3 cm LV Systolic Diameter PLAX 2.6 cm IVS Diastolic Thickness 1.0 cm 0.6 - 1.0 / 0.6 - 0.9 cm LVPW Diastolic Thickness 1.0 cm 0.6 - 1.0 / 0.6 - 0.9 cm LV Relative Wall Thickness 0.6 RV Internal Dim ED PLAX 3.1 cm LA Systolic Diameter LX 2.4 cm 3.0 - 4.0 / 2.7 - 3.8 cm LA Volume 33.1 cm??? 18 - 58 / 22 - 52 cm??? M-MODE Aortic Root Diameter MM 3.0 cm MV E Point Septal Separation 0.5 cm AV Cusp Separation MM 1.5 cm DOPPLER AV Peak Velocity 144.8 cm/s AV Peak Gradient 8.4 mmHg MV Area PHT 3.0 cm??? Mitral E Point Velocity 69.6 cm/s Mitral A Point Velocity 83.1 cm/s Mitral E to A Ratio 0.8 MV Deceleration Time 250.2 ms MV E' Velocity 7.3 cm/s Mitral E to MV E' Ratio 9.5 TR Peak Velocity 222.4 cm/s TR Peak Gradient 19.8 mmHg Right Ventricular Systolic Press 24.8 mmHg FINDINGS Left Ventricle Left ventricular ejection fraction is estimated at 60-65 %. Small left ventricular cavity. Left ventricular wall thickness normal. Right Ventricle Normal right ventricular size and function. Right ventricular systolic pressure within normal limits. Right Atrium Normal right atrial size. Left Atrium Normal left atrial size. No evidence for an atrial septal defect. Mitral Valve Mitral valve thickened. No mitral stenosis, regurgitation or prolapse. Mitral annular calcification. Aortic Valve Trileaflet aortic valve. No aortic valve stenosis or regurgitation. Tricuspid Valve Trace to mild tricuspid regurgitation. Pulmonic Valve Structurally normal pulmonic valve. Pericardium Normal pericardium. No pericardial effusion. Aorta Normal size aortic root and proximal ascending aorta. CONCLUSIONS Normal LV systolic function Trace tricuspid regurgitation Mitral annular calcification without significant stenosis or regurgitation Previewed by: Dr. Bharath Liang MD (Electronically Signed) Final Date: 30 April 2022 11:37
== END | disposition home or self-care (01) ==
LOC: RADECHMAIN 08:33
PROVIDERS: ATTEND Family Medicine
DX: I07.1 Rheumatic tricuspid insufficiency (principal); I34.81 Nonrheumatic mitral (valve) annulus calcification
CPT/HCPCS: 93306

== ENCOUNTER 2022-05-08 12:31 | Day surgery (SDC) | payer OTHER ==
[2022-05-08 13:27] LABS: Mean Platelet Volume 7.1; Platelet Count 507 k/uL (150-450)
[2022-05-08 13:34] VITALS: TEMP 98.1
[2022-05-08 13:34] LABS: African American GFR (CKD) >90 (>60 ml/min/1.73 sqM); Non-African American GFR(CKD) >90 (>60 ml/min/1.73 sqM)
[2022-05-08 13:49] LABS: INR 0.9 (<1.2); Prothrombin Time 10.1 sec (9.0-12.0)
[2022-05-08] MEDS: ALBUMIN HUMAN 25% 50 ML in EMPTY BAG 1 BAG IVPB SCH ×4 (14:07→14:56)
[2022-05-08 15:03] VITALS: RESP 16
[2022-05-08 15:24] VITALS: BP 116/67; PULSE 78
--- NOTE | 2022-05-09 08:15 | US ---
Ultrasound-guided paracentesis. DATE OF EXAM: 05/08/2022 CLINICAL HISTORY: Ascites The procedure was discussed with the patient. The risks, complications, benefits, and alternatives we re discussed and any questions were answered. Informed consent was obtained. The patient was placed s upine on the ultrasound table and prepped and draped in the usual sterile fashion. All elements of maximal barrier technique were utilized. Under ultrasound guidance, access into the right lower quadrant was obtained, via the paracentesis catheter system and direct ultrasound guidanc e. Approximately 8.2 liters of straw-colored fluid was removed. The patient was stable throughout the pr ocedure and remained stable upon discharge from Department of Radiology. IMPRESSION: Successful paracentesis under ultrasound guidance.
== END 2022-05-08 15:25 | disposition home or self-care (01) ==
LOC: RADPROMAIN 12:31
PROVIDERS: ATTEND Internal Medicine Gastroenterology
DX: R18.8 Other ascites (principal)
CPT/HCPCS: 82565; 85049; 85610; 36415; 49083; P9047

== ENCOUNTER 2022-05-15 12:35 | Day surgery (SDC) | payer OTHER ==
[2022-05-15 13:28] LABS: Mean Platelet Volume 7.4; Platelet Count 516 k/uL (150-450)
[2022-05-15 13:35] LABS: African American GFR (CKD) >90 (>60 ml/min/1.73 sqM); Non-African American GFR(CKD) >90 (>60 ml/min/1.73 sqM)
[2022-05-15 13:51] LABS: Prothrombin Time 10.9 sec (9.0-12.0)
[2022-05-15 13:58] VITALS: RESP 18
[2022-05-15] MEDS: ALBUMIN HUMAN 25% 50 ML in EMPTY BAG 1 BAG IVPB SCH ×4 (14:50→18:39)
[2022-05-15 18:42] VITALS: BP 119/64; PULSE 74
--- NOTE | 2022-05-16 07:52 | US ---
Ultrasound-guided paracentesis. DATE OF EXAM: 05/15/2022 CLINICAL HISTORY: Ascites The procedure was discussed with the patient. The risks, complications, benefits, and alternatives we re discussed and any questions were answered. Informed consent was obtained. The patient was placed s upine on the ultrasound table and prepped and draped in the usual sterile fashion. All elements of maximal barrier technique were utilized. Under ultrasound guidance, access into the right lower quadrant was obtained, via the paracentesis catheter system and direct ultrasound guidanc e. Approximately 8 liters of straw-colored fluid was removed. The patient was stable throughout the proc edure and remained stable upon discharge from Department of Radiology. IMPRESSION: Successful paracentesis under ultrasound guidance.
[2022-05-16 16:01] LABS: Appearance,BF Hazy; RBC, Body Fluid 11 /uL
[2022-05-16 16:02] LABS: Nucleated Cells, Body Fluid 33 /uL
[2022-05-16 16:09] LABS: Mononuclear WBC,Body Fluid 97 %; Polynuclear WBC,Body Fluid 3 %; Total Cells Counted,Body Fluid 100
== END 2022-05-15 16:30 | disposition home or self-care (01) ==
LOC: RADPROMAIN 12:35
PROVIDERS: ATTEND Student in an Organized Health Care Education/Training Program
DX: R18.8 Other ascites (principal)
CPT/HCPCS: 89050; 82565; 85049; 85610; 36415; 49083; P9047

== ENCOUNTER 2022-05-24 12:16 | Day surgery (SDC) | payer OTHER ==
[2022-05-22] MEDS: ALBUMIN HUMAN 25% 50 ML in EMPTY BAG 1 BAG IVPB SCH (09:57)
[2022-05-24 12:41] VITALS: TEMP 97.8
[2022-05-24 12:53] LABS: Mean Platelet Volume 7.2; Platelet Count 580 k/uL (150-450)
[2022-05-24 13:01] LABS: African American GFR (CKD) >90 (>60 ml/min/1.73 sqM); Non-African American GFR(CKD) >90 (>60 ml/min/1.73 sqM)
[2022-05-24] MEDS: ALBUMIN HUMAN 25% 50 ML in EMPTY BAG 1 BAG IVPB SCH ×4 (13:24→14:12)
[2022-05-24 14:29] VITALS: PULSE 73
[2022-05-24 15:12] VITALS: BP 153/73; RESP 14
--- NOTE | 2022-05-24 15:28 | US ---
Ultrasound-guided paracentesis. DATE OF EXAM: 05/24/2022 CLINICAL HISTORY: Ascites The procedure was discussed with the patient. The risks, complications, benefits, and alternatives we re discussed and any questions were answered. Informed consent was obtained. The patient was placed s upine on the ultrasound table and prepped and draped in the usual sterile fashion. All elements of maximal barrier technique were utilized. Under ultrasound guidance, access into the right lower quadrant was obtained, via the paracentesis catheter system and direct ultrasound guidanc e. Approximately 9.5 liters of straw-colored fluid was removed. The patient was stable throughout the pr ocedure and remained stable upon discharge from Department of Radiology. IMPRESSION: Successful paracentesis under ultrasound guidance.
[2022-05-25 01:30] LABS: Appearance,BF Cloudy
== END 2022-05-24 14:50 | disposition home or self-care (01) ==
LOC: RADPROMAIN 12:16
PROVIDERS: ATTEND Student in an Organized Health Care Education/Training Program
DX: R18.8 Other ascites (principal)
CPT/HCPCS: 89050; 82565; 85049; 85610; 36415; 49083; P9047

== ENCOUNTER 2022-05-29 12:35 | Day surgery (SDC) | payer OTHER ==
[2022-05-29 13:06] VITALS: RESP 16; TEMP 98.1
[2022-05-29 13:18] LABS: Mean Platelet Volume 7.1; Platelet Count 547 k/uL (150-450)
[2022-05-29 13:24] LABS: Prothrombin Time 10.5 sec (9.0-12.0)
[2022-05-29 13:29] LABS: African American GFR (CKD) >90 (>60 ml/min/1.73 sqM); Non-African American GFR(CKD) >90 (>60 ml/min/1.73 sqM)
[2022-05-29] MEDS: ALBUMIN HUMAN 25% 50 ML in EMPTY BAG 1 BAG IVPB SCH ×4 (14:32→15:19)
[2022-05-29 15:41] VITALS: BP 113/70; PULSE 80
[2022-05-30 17:18] LABS: Appearance,BF Cloudy
--- NOTE | 2022-05-31 08:55 | US ---
EXAM: Ultrasound-guided Paracentesis DATE: 05/29/2022 4:16 PM REASON FOR EXAM: Ascites RADIOLOGIST: Dr. Olivas [employer]AL MANAGER ROAD PRODUCTION: None ANESTHESIA: Local Lidocaine TECHNIQUE: I verify that I have discussed the potential benefits, risks, and side effects regarding this treatme nt/procedure, the likelihood of the patient achieving his or her goals, and the potential problems th at might occur during recuperation. I verify that I have explained the alternatives to the patient i ncluding the risks, benefits, and side effects related to the alternatives and the risks related to n ot receiving the operation/procedure/treatment. The patient/surrogate decision maker has had an oppo rtunity to ask and have questions answered. I have secured the patient's or the surrogate decision m mignon's consent prior to the operation/procedure/treatment. Patient was placed supine on ultrasound table and the lower abdomen was prepped and draped in usual s terile fashion. 1% lidocaine was infused into the skin and subcutaneous soft tissues to achieve local anesthesia. Under sonographic guidance a 5 F Yueh needle was advanced into the ascites. Approximat allan 8800 ml of megha-colored fluid was removed. FINDINGS: Sonographic images of the abdomen demonstrate a large amount of free fluid. IMPRESSION: Technically successful uncomplicated paracentesis.
== END 2022-05-29 15:50 | disposition home or self-care (01) ==
LOC: RADPROMAIN 12:35
PROVIDERS: ATTEND Internal Medicine Gastroenterology
DX: R18.8 Other ascites (principal)
CPT/HCPCS: 89050; 82565; 85049; 85610; 36415; 49083; P9047

== ENCOUNTER 2022-06-25 07:44 | Day surgery (SDC) | payer OTHER ==
[2022-06-25 08:25] VITALS: RESP 16; TEMP 98.1
[2022-06-25 08:40] LABS: INR 1.1 (<1.2); Prothrombin Time 11.2 sec (9.0-12.0)
[2022-06-25 08:47] LABS: African American GFR (CKD) >90 (>60 ml/min/1.73 sqM); Non-African American GFR(CKD) >90 (>60 ml/min/1.73 sqM)
[2022-06-25 09:16] LABS: Platelet Count 75 k/uL (150-450)
[2022-06-25] MEDS: ALBUMIN HUMAN 25% 50 ML in EMPTY BAG 1 BAG IVPB SCH ×4 (10:00→10:43)
[2022-06-25 10:39] VITALS: BP 120/73; PULSE 74
--- NOTE | 2022-06-25 14:59 | US ---
EXAMINATION TYPE: US paracentesis abd w/image DATE OF EXAM: 06/25/2022 CLINICAL HISTORY: Ascites The procedure was discussed with the patient. The risks, complications, benefits, and alternatives we re discussed and any questions were answered. Informed consent was obtained. The patient was placed s upine on the ultrasound table and prepped and draped in the usual sterile fashion. All elements of maximal barrier technique were utilized. Under ultrasound guidance, access into the right lower quadrant was obtained, via the paracentesis catheter system and direct ultrasound guidanc e. Approximately 3900 liters of straw-colored fluid was removed. The patient was stable throughout the p rocedure and remained stable upon discharge from Department of Radiology. IMPRESSION: Successful therapeutic paracentesis under ultrasound guidance.
[2022-06-25 18:52] LABS: Appearance,BF Cloudy
== END 2022-06-25 10:58 | disposition home or self-care (01) ==
LOC: RADPROMAIN 07:44
PROVIDERS: ATTEND Student in an Organized Health Care Education/Training Program
DX: R18.8 Other ascites (principal)
CPT/HCPCS: 89050; 82565; 85049; 85610; 36415; 49083; P9047

== ENCOUNTER 2022-07-04 08:50 | Day surgery (SDC) | payer OTHER ==
[2022-07-04 09:21] LABS: Mean Platelet Volume 9.1
[2022-07-04 09:26] LABS: Platelet Count 75 k/uL (150-450)
[2022-07-04 09:28] LABS: African American GFR (CKD) >90 (>60 ml/min/1.73 sqM); Non-African American GFR(CKD) >90 (>60 ml/min/1.73 sqM)
[2022-07-04 09:31] VITALS: TEMP 97.8
[2022-07-04 09:31] LABS: INR 1.1 (<1.2); Prothrombin Time 11.2 sec (9.0-12.0)
[2022-07-04] MEDS: ALBUMIN HUMAN 25% 50 ML in EMPTY BAG 1 BAG IVPB SCH ×3 (10:19→10:48)
--- NOTE | 2022-07-04 10:57 | US ---
Ultrasound-guided paracentesis. DATE OF EXAM: 07/04/2022 CLINICAL HISTORY: Ascites The procedure was discussed with the patient. The risks, complications, benefits, and alternatives we re discussed and any questions were answered. Informed consent was obtained. The patient was placed s upine on the ultrasound table and prepped and draped in the usual sterile fashion. All elements of maximal barrier technique were utilized. Under ultrasound guidance, access into the right lower quadrant was obtained, via the paracentesis catheter system and direct ultrasound guidanc e. Approximately 4.1 liters of straw-colored fluid was removed. The patient was stable throughout the pr ocedure and remained stable upon discharge from Department of Radiology. IMPRESSION: Successful paracentesis under ultrasound guidance.
[2022-07-04 11:07] VITALS: BP 107/65; PULSE 68; RESP 14
[2022-07-04 23:57] LABS: Appearance,BF Hazy
== END 2022-07-04 11:10 | disposition home or self-care (01) ==
LOC: RADPROMAIN 08:50
PROVIDERS: ATTEND Student in an Organized Health Care Education/Training Program
DX: R18.8 Other ascites (principal)
CPT/HCPCS: 89050; 82565; 85049; 85610; 36415; 49083; P9047

== ENCOUNTER 2022-07-09 07:58 | Day surgery (SDC) | payer OTHER ==
[2022-07-09 08:30] LABS: Mean Platelet Volume 9.2
[2022-07-09 08:34] LABS: Platelet Count 73 k/uL (150-450)
[2022-07-09 08:37] LABS: African American GFR (CKD) >90 (>60 ml/min/1.73 sqM); Non-African American GFR(CKD) >90 (>60 ml/min/1.73 sqM)
[2022-07-09 08:38] LABS: INR 1.1 (<1.2); Prothrombin Time 11.4 sec (9.0-12.0)
[2022-07-09 08:58] VITALS: TEMP 97.9
[2022-07-09] MEDS: ALBUMIN HUMAN 25% 50 ML in EMPTY BAG 1 BAG IVPB SCH ×2 (09:26→09:58)
[2022-07-09 09:43] VITALS: PULSE 72
[2022-07-09 10:32] VITALS: BP 107/59; RESP 16
--- NOTE | 2022-07-09 12:17 | US ---
Ultrasound-guided paracentesis. DATE OF EXAM: 07/09/2022 CLINICAL HISTORY: Ascites The procedure was discussed with the patient. The risks, complications, benefits, and alternatives we re discussed and any questions were answered. Informed consent was obtained. The patient was placed s upine on the ultrasound table and prepped and draped in the usual sterile fashion. All elements of maximal barrier technique were utilized. Under ultrasound guidance, access into the right lower quadrant was obtained, via the paracentesis catheter system and direct ultrasound guidanc e. Approximately 3.2 liters of straw-colored fluid was removed. The patient was stable throughout the pr ocedure and remained stable upon discharge from Department of Radiology. IMPRESSION: Successful paracentesis under ultrasound guidance.
[2022-07-09 21:09] LABS: Appearance,BF Grossly Bloody
== END 2022-07-09 10:28 | disposition home or self-care (01) ==
LOC: RADPROMAIN 07:58
PROVIDERS: ATTEND Student in an Organized Health Care Education/Training Program
DX: R18.8 Other ascites (principal)
CPT/HCPCS: 89050; 82565; 85049; 85610; 36415; 49083; P9047

== ENCOUNTER 2022-09-10 13:39 | Observation (INO) | payer OTHER ==
--- NOTE | 2022-09-10 14:21 | ED ---
General Adult HPI - General Chief complaint: Altered Mental Status Stated complaint: AMS Time Seen by Provider: 09/10/22 14:08 Source: patient, family, RN notes reviewed Mode of arrival: ambulatory Limitations: no limitations - History of Present Illness Initial comments: Patient is a pleasant 62-year-old male presenting to the emergency department with concerns for change in mental status. Onset of symptoms was several days ago. Patient did see his primary care doctor yesterday. Patient does have history of liver cirrhosis. Patient did have TIPS procedure done several months ago. Patient has no specific complaints. Patient is drowsy but will answer 1 word answers. states occasionally patient does have conversations that are not logical. Patient is also been more drowsy. - Related Data Home Medications Medication Instructions Recorded Confirmed Folic Acid 1 mg PO DAILY 09/21/21 09/10/22 Furosemide [Lasix] 40 mg PO DAILY 09/21/21 09/10/22 buPROPion XL [Wellbutrin XL] 150 mg PO DAILY 03/08/22 09/10/22 Cholecalciferol [Vitamin D3 (25 50 mcg PO DAILY 04/09/22 09/10/22 Mcg = 1000 Iu)] Lactulose 20 gm PO TID PRN 04/23/22 09/10/22 Acetaminophen [Tylenol] 650 mg PO Q6H PRN 09/10/22 09/10/22 Ferrous Sulfate [Feosol] 325 mg PO DAILY 09/10/22 09/10/22 Midodrine HCl [ProAmatine] 10 mg PO TID 09/10/22 09/10/22 Omeprazole 20 mg PO DAILY 09/10/22 09/10/22 Rifaximin [Xifaxan] 550 mg PO BID 09/10/22 09/10/22 Spironolactone [Aldactone] 50 mg PO DAILY 09/10/22 09/10/22 Warfarin [Coumadin] 3 mg PO HS 09/10/22 09/10/22 metOLazone [Zaroxolyn] 2.5 mg PO MOWEFR 09/10/22 09/10/22 Allergies Allergy/AdvReac Type Severity Reaction Status Date / Time lisinopril AdvReac Rapid Verified 09/10/22 16:23 Heart Rate/itching Review of Systems ROS Statement: Those systems with pertinent positive or pertinent negative responses have been documented in the HPI. ROS Other: All systems not noted in ROS Statement are negative. Constitutional: Denies: fever Eyes: Denies: eye pain ENT: Denies: ear pain Respiratory: Denies: cough Cardiovascular: Denies: chest pain Endocrine: Denies: fatigue Gastrointestinal: Denies: abdominal pain Genitourinary: Denies: dysuria Skin: Denies: rash Neurological: Reports: as per HPI, confusion. Denies: weakness Past Medical History Past Medical History: Hypertension, Liver Disease, Osteoarthritis (OA) Additional Past Medical History / Comment(s): ascites TIPS May 21 History of Any Multi-Drug Resistant Organisms: None Reported Past Surgical History: No Surgical Hx Reported Additional Past Surgical History / Comment(s): COLONOSCOPY, paracentesis, liver stent insertion 2022 Past Anesthesia/Blood Transfusion Reactions: No Reported Reaction Past Psychological History: No Psychological Hx Reported Smoking Status: Current every day smoker Past Alcohol Use History: None Reported Past Drug Use History: None Reported - Past Family History Mother Family Medical History: Cancer Brother(s) Family Medical History: Cancer General Exam Limitations: no limitations General appearance: in no apparent distress Head exam: Present: atraumatic Eye exam: Present: normal appearance, PERRL, EOMI ENT exam: Present: normal oropharynx Neck exam: Present: normal inspection. Absent: tenderness, meningismus Respiratory exam: Present: normal lung sounds bilaterally Cardiovascular Exam: Present: regular rate, normal rhythm GI/Abdominal exam: Present: soft. Absent: distended, tenderness, guarding, rebound, rigid Extremities exam: Present: normal inspection. Absent: pedal edema, calf tenderness Neurological exam: Present: alert, oriented X3, CN II-XII intact. Absent: motor sensory deficit Expanded Neurological exam: Present: protecting the airway Patient oriented to: Present: person, place, time Cranial nerves: EOM's Intact: Normal Motor strength exam: RUE: 5, LUE: 5, RLE: 5, LLE: 5 Eye Response: (3) open to voice Motor Response: (6) obeys commands Verbal Response: (5) oriented Psychiatric exam: Present: flat affect Skin exam: Present: normal color Course Vital Signs 09/10/22 09/10/22 09/10/22 13:47 15:30 16:56 Temperature 98.3 F Pulse Rate 81 68 71 Respiratory 18 18 18 Rate Blood Pressure 110/76 121/63 120/64 O2 Sat by Pulse 99 98 100 Oximetry EKG Findings - EKG Results: EKG: interpreted by ERMD, sinus rhythm, normal axis, normal QRS, normal ST/T Medical Decision Making - Medical Decision Making Was pt. sent in by a medical professional or institution (, [facility], [facility], urgent care, hospital, or [facility]...) When possible be specific @ -No Did you speak to anyone other than the patient for history (EMS, parent, family, police, friend...)? What history was obtained from this source @ -Family is present and provides history as patient is altered Did you review nursing and triage notes (agree or disagree)? Why? @ -I reviewed and agree with nursing and triage notes Were old charts reviewed (outside hosp., previous admission, EMS record, old EKG, old radiological studies, urgent care reports/EKG's, [facility] records)? Report findings @ -No old charts were reviewed Differential Diagnosis (chest pain, altered mental status, abdominal pain women, abdominal pain men, vaginal bleeding, weakness, fever, dyspnea, syncope, headache, dizziness, GI bleed, back pain, seizure, CVA, palpatations, mental health)? @ -Differential Altered Mental Status: Hypoglycemia, DKA, hypercapnia, ETOH, overdose, CO poisoning, trauma, myxedema coma, HTN encephalopathy, infection, encephalitis, psychosis, intercranial hemorrhage, hepatic encephalopathy, meningitis, CVA, this is not meant to be an all-inclusive list EKG interpreted by me (3pts min.). @ -As above X-rays interpreted by me (1pt min.). @ -Chest x-ray does not reveal acute process. CT interpreted by me (1pt min.). @ -Report reviewed U/S interpreted by me (1pt. min.). @ -Report reviewed What testing was considered but not performed or refused? (CT, X-rays, U/S, labs)? Why? @ -None What meds were considered but not given or refused? Why? @ -None Did you discuss the management of the patient with other professionals (professionals i.e. [facility], [facility], lab, RT, psych nurse, social psychologist, clutch rebuilder, teacher, motorcycle police officer, director of casework department)? Give summary @ -Case was discussed with Dr. Livingston, who will admit covering Dr. Hannah funes. Was smoking cessation discussed for >3mins.? @ -No Was critical care preformed (if so, how long)? @ -No Were there social determinants of health that impacted care today? How? (Homelessness, low income, unemployed, alcoholism, drug addiction, transportation, low edu. Level, literacy, decrease access to med. care, nursing home, rehab)? @ -No Was there de-escalation of care discussed even if they declined (Discuss DNR or withdrawal of care, Hospice)? DNR status @ -No What co-morbidities impacted this encounter? (DM, HTN, Smoking, COPD, CAD, Cancer, CVA, ARF, Chemo, Hep., AIDS, mental health diagnosis, sleep apnea, morbid obesity)? @ -None Was patient admitted / discharged? Hospital course, mention meds given and route, prescriptions, significant lab abnormalities, going to OR and other pertinent info. @ -Patient reevaluated. In the updated. Patient will be admitted. Undiagnosed new problem with uncertain prognosis? @ -No Drug Therapy requiring intensive monitoring for toxicity (Heparin, Nitro, Insulin, Cardizem)? @ -No Were any procedures done? @ -No Diagnosis/symptom? @ -Hepatic encephalopathy Acute, or Chronic, or Acute on Chronic? @ -Acute Uncomplicated (without systemic symptoms) or Complicated (systemic symptoms)? @ -default Side effects of treatment? @ -No Exacerbation, Progression, or Severe Exacerbation? @ -No Poses a threat to life or bodily function? How? (Chest pain, USA, PA, pneumonia, PE, COPD, DKA, ARF, appy, cholecystitis, CVA, Diverticulitis, Homicidal, Suicidal, threat to staff... and all critical care pts) @ -No - Lab Data Result diagrams: 09/10/22 14:37 09/10/22 14:37 Lab Results 09/10/22 09/10/22 09/10/22 Range/Units 14:37 14:37 14:37 WBC 11.9 H (3.8-10.6) k/uL RBC 3.98 L (4.30-5.90) m/uL Hgb 12.3 L (13.0-17.5) gm/dL Hct 38.1 L (39.0-53.0) % MCV 95.9 (80.0-100.0) fL MCH 30.9 (25.0-35.0) pg MCHC 32.2 (31.0-37.0) g/dL RDW 14.5 (11.5-15.5) % Plt Count 149 L D (150-450) k/uL MPV 7.9 Neutrophils % (Manual) 76 % Lymphocytes % (Manual) 13 % Monocytes % (Manual) 9 % Eosinophils % (Manual) 2 % Neutrophils # (Manual) 9.04 H (1.3-7.7) k/uL Lymphocytes # (Manual) 1.55 (1.0-4.8) k/uL Monocytes # (Manual) 1.07 H (0-1.0) k/uL Eosinophils # (Manual) 0.24 (0-0.7) k/uL Nucleated RBCs 0 (0-0) /100 WBC Manual Slide Review Performed Toxic Granulation Present Polychromasia Present PT 15.3 H (9.0-12.0) sec INR 1.5 H (<1.2) APTT 27.3 (22.0-30.0) sec Sodium (137-145) mmol/L Potassium (3.5-5.1) mmol/L Chloride (98-107) mmol/L Carbon Dioxide (22-30) mmol/L Anion Gap mmol/L BUN (9-20) mg/dL Creatinine (0.66-1.25) mg/dL Est GFR (CKD-EPI)AfAm (>60 ml/min/1.73 sqM) Est GFR (CKD-EPI)NonAf (>60 ml/min/1.73 sqM) Glucose (74-99) mg/dL POC Glucose (mg/dL) (70-110) mg/dL POC Glu Admin Asst ID Calcium (8.4-10.2) mg/dL Total Bilirubin (0.2-1.3) mg/dL AST (17-59) U/L ALT (4-49) U/L Alkaline Phosphatase (38-126) U/L Ammonia (<30) umol/L Total Protein (6.3-8.2) g/dL Albumin (3.5-5.0) g/dL Urine Opiates Screen Not Detected (NotDetected) Ur Oxycodone Screen Not Detected (NotDetected) Urine Methadone Screen Not Detected (NotDetected) Ur Propoxyphene Screen Not Detected (NotDetected) Ur Barbiturates Screen Not Detected (NotDetected) U Tricyclic Antidepress Not Detected (NotDetected) Ur Phencyclidine Scrn Not Detected (NotDetected) Ur Amphetamines Screen Not Detected (NotDetected) U Methamphetamines Scrn Not Detected (NotDetected) U Benzodiazepines Scrn Not Detected (NotDetected) Urine Cocaine Screen Not Detected (NotDetected) U Marijuana (THC) Screen Not Detected (NotDetected) Serum Alcohol mg/dL 09/10/22 09/10/22 09/10/22 Range/Units 14:37 14:37 15:07 WBC (3.8-10.6) k/uL RBC (4.30-5.90) m/uL Hgb (13.0-17.5) gm/dL Hct (39.0-53.0) % MCV (80.0-100.0) fL MCH (25.0-35.0) pg MCHC (31.0-37.0) g/dL RDW (11.5-15.5) % Plt Count (150-450) k/uL MPV Neutrophils % (Manual) % Lymphocytes % (Manual) % Monocytes % (Manual) % Eosinophils % (Manual) % Neutrophils # (Manual) (1.3-7.7) k/uL Lymphocytes # (Manual) (1.0-4.8) k/uL Monocytes # (Manual) (0-1.0) k/uL Eosinophils # (Manual) (0-0.7) k/uL Nucleated RBCs (0-0) /100 WBC Manual Slide Review Toxic Granulation Polychromasia PT (9.0-12.0) sec INR (<1.2) APTT (22.0-30.0) sec Sodium 138 (137-145) mmol/L Potassium 3.9 (3.5-5.1) mmol/L Chloride 103 (98-107) mmol/L Carbon Dioxide 26 (22-30) mmol/L Anion Gap 9 mmol/L BUN 22 H (9-20) mg/dL Creatinine 0.84 (0.66-1.25) mg/dL Est GFR (CKD-EPI)AfAm >90 (>60 ml/min/1.73 sqM) Est GFR (CKD-EPI)NonAf >90 (>60 ml/min/1.73 sqM) Glucose 94 (74-99) mg/dL POC Glucose (mg/dL) 106 (70-110) mg/dL POC Glu Admin Asst Gregor Jones Calcium 9.1 (8.4-10.2) mg/dL Total Bilirubin 1.4 H (0.2-1.3) mg/dL AST 44 (17-59) U/L ALT 45 (4-49) U/L Alkaline Phosphatase 176 H (38-126) U/L Ammonia 76 H (<30) umol/L Total Protein 7.3 (6.3-8.2) g/dL Albumin 4.1 (3.5-5.0) g/dL Urine Opiates Screen (NotDetected) Ur Oxycodone Screen (NotDetected) Urine Methadone Screen (NotDetected) Ur Propoxyphene Screen (NotDetected) Ur Barbiturates Screen (NotDetected) U Tricyclic Antidepress (NotDetected) Ur Phencyclidine Scrn (NotDetected) Ur Amphetamines Screen (NotDetected) U Methamphetamines Scrn (NotDetected) U Benzodiazepines Scrn (NotDetected) Urine Cocaine Screen (NotDetected) U Marijuana (THC) Screen (NotDetected) Serum Alcohol <10 mg/dL Disposition Clinical Impression: Hypertensive encephalopathy Disposition: ADMITTED IP TO THIS HOSP Is patient prescribed a controlled substance at d/c from ED?: No Referrals: Nitin Ndiaye DO [Primary Care Provider] - 1-2 days Time of Disposition: 17:42
[2022-09-10 15:00] LABS: INR 1.5 (<1.2); Partial Thromboplastin Time 27.3 sec (22.0-30.0); Prothrombin Time 15.3 sec (9.0-12.0)
[2022-09-10 15:03] LABS: ALT 45 U/L (4-49); AST 44 U/L (17-59); African American GFR (CKD) >90 (>60 ml/min/1.73 sqM); Albumin 4.1 g/dL (3.5-5.0); Alcohol <10 mg/dL; Alkaline Phosphatase 176 U/L (38-126); Anion Gap 9 mmol/L; Blood Urea Nitrogen 22 mg/dL (9-20); Calcium 9.1 mg/dL (8.4-10.2); Carbon Dioxide 26 mmol/L (22-30); Chloride 103 mmol/L (98-107); Glucose 94 mg/dL (74-99); Non-African American GFR(CKD) >90 (>60 ml/min/1.73 sqM); Potassium 3.9 mmol/L (3.5-5.1); Sodium 138 mmol/L (137-145); Total Bilirubin 1.4 mg/dL (0.2-1.3); Total Protein 7.3 g/dL (6.3-8.2)
[2022-09-10 15:09] LABS: Glucose,Whole Blood 106 mg/dL (70-110)
[2022-09-10 15:33] LABS: Amphetamine Screen,Urine Not Detected (NotDetected); Barbiturate Screen,Urine Not Detected (NotDetected); Benzodiazepines Screen,Urine Not Detected (NotDetected); Cocaine Screen,Urine Not Detected (NotDetected); Methadone Screen, Urine Not Detected (NotDetected); Opiate Screen,Urine Not Detected (NotDetected); Oxycodone Screen, Urine Not Detected (NotDetected); Phencyclidine Screen,Urine Not Detected (NotDetected); Tricyclic Antidepressant,Urine Not Detected (NotDetected); Urn Cannabinoid Scrn Not Detected (NotDetected)
[2022-09-10 15:35] LABS: HCT 38.1 % (39.0-53.0); HGB 12.3 gm/dL (13.0-17.5); MCH 30.9 pg (25.0-35.0); MCHC 32.2 g/dL (31.0-37.0); MCV 95.9 fL (80.0-100.0); Mean Platelet Volume 7.9; RBC 3.98 m/uL (4.30-5.90); RDW 14.5 % (11.5-15.5); WBC 11.9 k/uL (3.8-10.6)
[2022-09-10 15:41] LABS: Platelet Count 149 k/uL (150-450)
[2022-09-10 16:03] LABS: Eosinophils # (M) 0.24 k/uL (0-0.7); Lymphocytes # (M) 1.55 k/uL (1.0-4.8); Monocytes # (M) 1.07 k/uL (0-1.0); Neutrophils # (M) 9.04 k/uL (1.3-7.7); Neutrophils % (M) 76 %; Nucleated Red Blood Cells 0 /100 WBC (0-0); Total Cells Counted 100
[2022-09-10 16:04] LABS: Polychromasia Present; Toxic Granulation Present
--- NOTE | 2022-09-10 16:25 | US ---
EXAMINATION TYPE: US gallbladder DATE OF EXAM: 09/10/2022 COMPARISON: CT 07/18/2021 CLINICAL HISTORY: eval stent. TIPS procedure in June with a history of blood clot. Patient is on blood thinners. TECHNIQUE: Multiple sonographic images of the right upper quadrant are obtained. FINDINGS: EXAM MEASUREMENTS: Liver Length: 13.8 cm Gallbladder Wall: 0.2 cm CBD: 0.4 cm Right Kidney: 11.2 x 5.3 x 5.9 cm Pancreas: Head and tail obscured by overlying bowel gas Liver: Appears coarse. TIPS stent visualized with vascular flow seen within . Spectral venous wavef orms appear within normal limits. Velocities of the mid aspect of the stent appear between 60 and 120 cm/s. Gallbladder: wnl Evidence for sonographic Milan's sign: neg CBD: wnl Right Kidney: No hydronephrosis or masses seen IMPRESSION: 1. TIPS stent visualized with internal color Doppler flow suggesting patency. Evaluation for stenosi s was not performed by multi craft maintenance technician. 2. Hepatocellular disease.
--- NOTE | 2022-09-10 16:29 | XR ---
EXAMINATION TYPE: XR chest 2V DATE OF EXAM: 09/10/2022 4:15 PM COMPARISON: None TECHNIQUE: XR chest 2V Frontal and lateral views of the chest. CLINICAL INDICATION:Male, 62 years old with history of altered mental status; FINDINGS: Lungs/Pleura: There is flattening of the diaphragm with increased lucency of the lungs. No evidence o f pneumothorax, pleural effusion or focal consolidation. Pulmonary vascularity: Unremarkable. Heart/mediastinum: Cardiomediastinal silhouette is unremarkable. Musculoskeletal: No acute osseous pathology. IMPRESSION: 1. No acute cardiopulmonary disease process. 2. COPD changes.
--- NOTE | 2022-09-10 16:50 | CT ---
EXAMINATION TYPE: CT brain wo con DATE OF EXAM: 09/10/2022 COMPARISON: None HISTORY: weakness, ams CT DLP: 1118.4 mGycm Automated exposure control for dose reduction was used. Images obtained of the brain with no contrast. Ventricles of normal size. There is no mass effect or midline shift. No sign of intracranial hemorrha ge. Calvarium is intact. The skull base is intact. There is normal aeration of the mastoid sinuses. IMPRESSION: Negative unenhanced head CT scan exam is normal for age.
[2022-09-10] MEDS ORDERED: ACETAMINOPHEN TAB 325 MG TAB PO PRN (17:28)
[2022-09-10] MEDS ORDERED: LACTULOSE 200 GM/300 ML (FROM 1/2 GAL JUG) PO SCH (17:30)
[2022-09-10] MEDS ORDERED: NALOXONE 0.4 MG/ML 1 ML VIAL IV PRN (17:42)
[2022-09-10] MEDS ORDERED: LACTULOSE 20 GM/30 ML CUP PO ONE (17:46)
--- NOTE | 2022-09-10 18:56 | P.HPIM ---
History of Present Illness H&P Date: 09/10/22 Chief Complaint: Confusion 62-year-old man with medical history of hepatic cirrhosis status post TIPS procedure in May, complicated by venous thromboembolism inside of the stent now on Coumadin, history of SAGE, also with recently incarcerated ventral hernia requiring emergency repair and 8 inches of small bowel resection in June presented with confusion. Patient was in his usual state of health when he started to develop confusion over the past several days. He supposed to be taking lactulose 3 times a day, rifaximin twice a day, but is not clear whether or not he had been taking his medications. He has had constipation over the last couple days as well. A lot of the history is provided by his was at bedside. She tells me that she is not clear if patient has been compliant with his lactulose, rifaximin given his increasing confusion. She is certain that he has not had a proper bowel movement in at least 24-48 hours. He denies fevers, chills, nausea, vomiting, chest pain, palpitations, syncope, recently, cough, dyspnea, abdominal pain, diarrhea, dysuria, dyschezia, numbness/weakness of extremities. In the emergency room, patient was afebrile, 110/76, heart rate 81, 99% on room air. CBC is remarkable for leukocytosis to 11.9, mild anemia down to 12.3, thrombocytopenia to 149. Chemistries show elevated BUN 22. Her function tests remarkable for total bilirubin of 1.4, alkaline phosphatase 176. Ammonia level 76. Urine tox was negative. Alcohol level is less than 10. Coags are remarkable for an INR of 1.5. Gallbladder ultrasound shows TIPS stent with patency. Chest x-ray appears clear bilaterally with hyperinflation and fl attening of diaphragms consistent with COPD changes. EKG shows normal sinus rhythm without any evidence of ischemia, right axis deviation, left atrial enlargement. Brain CT was negative for acute pathology. Case was discussed with the emergency room physician and decision was made to admit the patient to observation for confusion. All Systems reviewed and pertinent positives and negatives noted in HPI, all other symptoms are negative Gen: in no apparent distress, resting comfortably in bed Eyes: PERRL, no scleral injection or icterus HENT: normocephalic, atraumatic, good hearing acuity, moist mucous membranes Neck: no tracheal deviation, full range of motion Resp: good air exchange, breathing comfortably with no accessory muscle use, no tactile fremitus CVS: good distal perfusion x 4, no pitting edema GI: soft, NTTP, ND, no hepatosplenomegaly : no suprapubic tenderness, no CVAT, chaidez catheter not present MSK: no clubbing, no cyanosis, no noted contractures of extremities Skin: no noted rashes, petechiae; temperature of skin is appropriate Neuro: moving all extremities without signs of weakness, CN II-XII intact Psych: cooperative, euthymic mood, insight and judgment intact Labs and imaging as above Assessment: Hepatic encephalopathy Leukocytosis History of venous thromboembolism Hepatic cirrhosis Plan: Vital signs reviewed and noted in HPI CBC, basic metabolic panel, liver function tests, ammonia, urine tox, alcohol level, coags were reviewed and noted in HPI Gallbladder ultrasound, brain CT was reviewed and noted in the HPI Chest x-ray and EKG were personally interpreted and noted in HPI CBC, basic metabolic panel, magnesium, hepatic function panel, PT/INR are ordered for tomorrow Restart lactulose 30 mg 3 times a day Restart rifaximin 550 mg twice a day Obtain urinalysis, blood cultures Ceftriaxone 1 g every 24 hours for empiric coverage of decompensated hepatic cirrhosis Restart Coumadin, dose based on INR Patient is full code DVT prophylaxis is covered with heparin Past Medical History Past Medical History: Hypertension, Liver Disease, Osteoarthritis (OA) Additional Past Medical History / Comment(s): ascites TIPS May 21 History of Any Multi-Drug Resistant Organisms: None Reported Past Surgical History: No Surgical Hx Reported Additional Past Surgical History / Comment(s): COLONOSCOPY, paracentesis, liver stent insertion 2022 Past Anesthesia/Blood Transfusion Reactions: No Reported Reaction Past Psychological History: No Psychological Hx Reported Smoking Status: Current every day smoker Past Alcohol Use History: None Reported Past Drug Use History: None Reported - Past Family History Mother Family Medical History: Cancer Brother(s) Family Medical History: Cancer Medications and Allergies Home Medications Medication Instructions Recorded Confirmed Type Folic Acid 1 mg PO DAILY 09/21/21 09/10/22 History Furosemide [Lasix] 40 mg PO DAILY 09/21/21 09/10/22 History buPROPion XL [Wellbutrin XL] 150 mg PO DAILY 03/08/22 09/10/22 History Cholecalciferol [Vitamin D3 (25 50 mcg PO DAILY 04/09/22 09/10/22 History Mcg = 1000 Iu)] Lactulose 20 gm PO TID PRN 04/23/22 09/10/22 History Acetaminophen [Tylenol] 650 mg PO Q6H PRN 09/10/22 09/10/22 History Ferrous Sulfate [Feosol] 325 mg PO DAILY 09/10/22 09/10/22 History Midodrine HCl [ProAmatine] 10 mg PO TID 09/10/22 09/10/22 History Omeprazole 20 mg PO DAILY 09/10/22 09/10/22 History Rifaximin [Xifaxan] 550 mg PO BID 09/10/22 09/10/22 History Spironolactone [Aldactone] 50 mg PO DAILY 09/10/22 09/10/22 History Warfarin [Coumadin] 3 mg PO HS 09/10/22 09/10/22 History metOLazone [Zaroxolyn] 2.5 mg PO MOWEFR 09/10/22 09/10/22 History Allergies Allergy/AdvReac Type Severity Reaction Status Date / Time lisinopril AdvReac Rapid Verified 09/10/22 16:23 Heart Rate/itching Physical Exam Osteopathic Statement: *. No significant issues noted on an osteopathic structural exam other than those noted in the History and Physical/Consult. Vitals: Vital Signs Temp Pulse Resp BP Pulse Ox 09/10/22 16:56 71 18 120/64 100 09/10/22 15:30 68 18 121/63 98 09/10/22 13:47 98.3 F 81 18 110/76 99 Intake and Output 09/10/22 09/10/22 09/10/22 06:59 14:59 22:59 Other: Weight 71.668 kg Results CBC & Chem 7: 09/10/22 14:37 09/10/22 14:37 Labs: Abnormal Lab Results - Last 24 Hours (Table) 09/10/22 09/10/22 09/10/22 Range/Units 14:37 14:37 14:37 WBC 11.9 H (3.8-10.6) k/uL RBC 3.98 L (4.30-5.90) m/uL Hgb 12.3 L (13.0-17.5) gm/dL Hct 38.1 L (39.0-53.0) % Plt Count 149 L D (150-450) k/uL Neutrophils # (Manual) 9.04 H (1.3-7.7) k/uL Monocytes # (Manual) 1.07 H (0-1.0) k/uL PT 15.3 H (9.0-12.0) sec INR 1.5 H (<1.2) BUN 22 H (9-20) mg/dL Total Bilirubin 1.4 H (0.2-1.3) mg/dL Alkaline Phosphatase 176 H (38-126) U/L Ammonia (<30) umol/L 09/10/22 Range/Units 14:37 WBC (3.8-10.6) k/uL RBC (4.30-5.90) m/uL Hgb (13.0-17.5) gm/dL Hct (39.0-53.0) % Plt Count (150-450) k/uL Neutrophils # (Manual) (1.3-7.7) k/uL Monocytes # (Manual) (0-1.0) k/uL PT (9.0-12.0) sec INR (<1.2) BUN (9-20) mg/dL Total Bilirubin (0.2-1.3) mg/dL Alkaline Phosphatase (38-126) U/L Ammonia 76 H (<30) umol/L
[2022-09-10] MEDS: SODIUM CHLORIDE 0.9% 1,000 ML IV SCH (19:20)
[2022-09-10] MEDS: MIDODRINE 5 MG TAB PO SCH (19:23)
[2022-09-10] MEDS ORDERED: WARFARIN 5 MG TAB PO ONE (20:00)
[2022-09-10] MEDS: RIFAXIMIN 550 MG TABLET PO SCH (21:00)
[2022-09-10] MEDS: LACTULOSE 20 GM/30 ML CUP PO SCH (21:08)
[2022-09-10 21:36] VITALS: RESP 16
[2022-09-10 23:23] LABS: Appearance,Urine Clear (Clear); Bilirubin,Urine Negative (Negative); Blood,Urine Negative (Negative); Color,Urine Yellow; Glucose,Urine (UA) Negative (Negative); Ketones,Urine Negative (Negative); Leukocyte Esterase,Urine Negative (Negative); Nitrite,Urine Negative (Negative); Protein,Urine Negative (Negative); Specific Gravity,Urine 1.019 (1.001-1.035); Urobilinogen,Urine <2.0 mg/dL (<2.0)
[2022-09-11 07:22] VITALS: BP 108/55; PULSE 72; TEMP 98.8
[2022-09-11] MEDS ORDERED: PANTOPRAZOLE 40 MG TABLET PO SCH (07:30)
[2022-09-11] MEDS: FUROSEMIDE 40 MG TAB PO SCH ×2 (07:53→07:57)
[2022-09-11] MEDS: RIFAXIMIN 550 MG TABLET PO SCH (07:54)
[2022-09-11] MEDS: MIDODRINE 5 MG TAB PO SCH (07:54)
[2022-09-11] MEDS: LACTULOSE 20 GM/30 ML CUP PO SCH (07:55)
[2022-09-11] MEDS ORDERED: buPROPion XL 150 MG TAB.ER.24H PO SCH (09:00)
[2022-09-11] MEDS ORDERED: SPIRONOLACTONE 25 MG TAB PO SCH (09:00)
[2022-09-11] MEDS ORDERED: FERROUS SULFATE 325 MG TAB PO SCH (09:00)
[2022-09-11] MEDS ORDERED: CHOLECALCIFEROL 25 MCG (1000 IU) TABLET PO SCH (09:00)
[2022-09-11] MEDS ORDERED: FOLIC ACID 1 MG TAB PO SCH (09:00)
--- NOTE | 2022-09-11 09:40 | P.DS ---
Providers Date of admission: 09/10/22 17:43 Expected date of discharge: 09/11/22 Attending physician: Chanda Pa MD Primary care physician: Nitin Ndiaye [facility] Course: Assessment: Hepatic encephalopathy Leukocytosis History of venous thromboembolism Hepatic cirrhosis Hospital Course: 62-year-old man with medical history of hepatic cirrhosis status post TIPS procedure in May, complicated by venous thromboembolism inside of the stent now on Coumadin, history of SAGE, also with recently incarcerated ventral hernia requiring emergency repair and 8 inches of small bowel resection in June presented with confusion. In the emergency room, patient was afebrile, 110/76, heart rate 81, 99% on room air. CBC is remarkable for leukocytosis to 11.9, mild anemia down to 12.3, thrombocytopenia to 149. Chemistries show elevated BUN 22. Her function tests remarkable for total bilirubin of 1.4, alkaline phosphatase 176. Ammonia level 76. Urine tox was negative. Alcohol level is less than 10. Coags are remarkable for an INR of 1.5. Gallbladder ultrasound shows TIPS stent with patency. Chest x-ray appears clear bilaterally with hyperinflation and flattening of diaphragms consistent with COPD changes. EKG shows normal sinus rhythm without any evidence of ischemia, right axis deviation, left atrial enlargement. Brain CT was negative for acute pathology. Case was discussed with the emergency room physician and decision was made to admit the patient to observation for confusion. Patient's home lactulose was increased to 30gm TID and rifaximin was restarted. He had BMs overnight and his mental status did improve to baseline. He was briefly treated with ceftriaxone, but infectious workup with UA, CXR remained negative, and this was discontinued. He was discharged home with increased dosing of lactulose and f/u with PCP and GI physician. I spent 32 minutes coordinating this discharge on 09/11 Gen: in no apparent distress, resting comfortably in bed Eyes: PERRL, no scleral injection or icterus HENT: normocephalic, atraumatic, good hearing acuity, moist mucous membranes Neck: no tracheal deviation, full range of motion Resp: good air exchange, breathing comfortably with no accessory muscle use, no tactile fremitus CVS: good distal perfusion x 4, no pitting edema GI: soft, NTTP, ND, no hepatosplenomegaly : no suprapubic tenderness, no CVAT, chaidez catheter not present MSK: no clubbing, no cyanosis, no noted contractures of extremities Skin: no noted rashes, petechiae; temperature of skin is appropriate Neuro: moving all extremities without signs of weakness, CN II-XII intact Psych: cooperative, euthymic mood, insight and judgment intact Patient Condition at Discharge: Good Plan - Discharge Summary Discharge Rx Participant: No New Discharge Prescriptions: New Lactulose [Cephulac] 30 gm PO TID #3000 ml Continue Cholecalciferol [Vitamin D3 (25 Mcg = 1000 Iu)] 50 mcg PO DAILY Warfarin [Coumadin] 3 mg PO HS Acetaminophen [Tylenol] 650 mg PO Q6H PRN PRN Reason: Pain Or Fever > 100.5 Rifaximin [Xifaxan] 550 mg PO BID Midodrine HCl [ProAmatine] 10 mg PO TID metOLazone [Zaroxolyn] 2.5 mg PO MOWEFR Folic Acid 1 mg PO DAILY Furosemide [Lasix] 40 mg PO DAILY buPROPion XL [Wellbutrin XL] 150 mg PO DAILY Spironolactone [Aldactone] 50 mg PO DAILY Omeprazole 20 mg PO DAILY Ferrous Sulfate [Iron (65 MG Elemental)] 325 mg PO DAILY Discontinued Lactulose 20 gm PO TID PRN PRN Reason: Constipation Discharge Medication List Folic Acid 1 mg PO DAILY 09/21/21 [History] Furosemide [Lasix] 40 mg PO DAILY 09/21/21 [History] buPROPion XL [Wellbutrin XL] 150 mg PO DAILY 03/08/22 [History] Cholecalciferol [Vitamin D3 (25 Mcg = 1000 Iu)] 50 mcg PO DAILY 04/09/22 [History] Acetaminophen [Tylenol] 650 mg PO Q6H PRN 09/10/22 [History] Ferrous Sulfate [Iron (65 MG Elemental)] 325 mg PO DAILY 09/10/22 [History] Midodrine HCl [ProAmatine] 10 mg PO TID 09/10/22 [History] Omeprazole 20 mg PO DAILY 09/10/22 [History] Rifaximin [Xifaxan] 550 mg PO BID 09/10/22 [History] Spironolactone [Aldactone] 50 mg PO DAILY 09/10/22 [History] Warfarin [Coumadin] 3 mg PO HS 09/10/22 [History] metOLazone [Zaroxolyn] 2.5 mg PO MOWEFR 09/10/22 [History] Lactulose [Cephulac] 30 gm PO TID #3000 ml 09/11/22 [Rx] Follow up Appointment(s)/Referral(s): Nitin Ndiaye DO [Primary Care Provider] - 1-2 days Discharge Disposition: HOME SELF-CARE
[2022-09-11 09:53] LABS: Basophils # (A) 0.07 X 10*3/uL (0.00-0.10); Basophils % (A) 0.8 %; Eosinophils # (A) 0.64 X 10*3/uL (0.04-0.35); HCT 31.5 % (39.6-50.0); HGB 10.5 g/dL (13.0-17.0); Immature Grans, Automated 0.3 %; Lymphocytes # (A) 2.16 X 10*3/uL (0.90-5.00); Lymphocytes % (A) 23.6 %; MCH 32.1 pg (27.0-32.0); MCHC 33.3 g/dL (32.0-37.0); MCV 96.3 fL (80.0-97.0); Mean Platelet Volume 10.3 fL (9.5-12.2); Monocytes # (A) 1.69 X 10*3/uL (0.20-1.00); Monocytes % (A) 18.4 %; NRBC Per 100 WBC 0 /100 WBCS (0.0-0.0); Neutrophils # (A) 4.58 X 10*3/uL (1.80-7.70); Neutrophils % (A) 49.9 %; Platelet Count 132 X 10*3/uL (140-440); RBC 3.27 X 10*6/uL (4.40-5.60); RDW 14.6 % (11.5-14.5); WBC 9.17 X 10*3/uL (4.50-10.00)
[2022-09-11] MEDS: SODIUM CHLORIDE 0.9% 1,000 ML IV SCH (10:05)
[2022-09-11 10:26] LABS: INR 1.4 (<1.2); Prothrombin Time 14.1 sec (9.0-12.0)
[2022-09-11 11:17] LABS: Albumin 3.6 g/dL (3.8-4.9); Albumin/Globulin Ratio 1.5 (1.60-3.17); Anion Gap 14.6 mmol/L (10.00-18.00); BUN/Creat Ratio 24.78 Ratio (12.00-20.00); Bilirubin, Conjugated 0.26 mg/dL (0.20-0.40); Bilirubin,Unconjugated 0.44 mg/dL (0.20-1.00); Blood Urea Nitrogen 22.3 mg/dL (9.0-27.0); Calcium 8.8 mg/dL (8.7-10.3); Carbon Dioxide 21.4 mmol/L (20.0-27.5); Globulin 2.4 g/dL (1.6-3.3); Non-African American GFR(CKD) 90.6 (60.0-200.0); Potassium 3.2 mmol/L (3.5-5.5); Total Bilirubin 0.7 mg/dL (0.30-1.20)
[2022-09-11] MEDS ORDERED: WARFARIN 5 MG TAB PO ONE (18:00)
[2022-09-11] MEDS ORDERED: metOLazone 2.5 MG TAB PO SCH (19:00)
== END 2022-09-11 11:27 | disposition home or self-care (01) ==
LOC: EC 13:39 → 5NMEDONC 17:43 → INTOOBSV 17:43 → 5NMEDONC 20:12 → UNDODISIN 09-11 11:27
PROVIDERS: ADMIT Internal Medicine; ATTEND Internal Medicine
DX: K76.82 Hepatic encephalopathy (principal); I10 Essential (primary) hypertension; F17.200 Nicotine dependence, unspecified, uncomplicated; J44.9 Chronic obstructive pulmonary disease, unspecified; D64.9 Anemia, unspecified; K74.69 Other cirrhosis of liver; D69.6 Thrombocytopenia, unspecified; K76.9 Liver disease, unspecified; Z79.899 Other long term (current) drug therapy; Z80.9 Family history of malignant neoplasm, unspecified
CPT/HCPCS: 96365; 99285; 36415; 94760; 93005; 80053; 80048; 80076; 82140; 83735; 85025 ×2; 85610 ×2; 85730; 81003; 87040; 80306; 71046; 93976; 76705; 70450; G0378 ×2; G0480; J0696; 80320

== ENCOUNTER → 2022-12-20 | Outpatient (CLI) | payer OTHER ==
--- NOTE | 2022-12-20 09:44 | US ---
EXAMINATION TYPE: US abdomen limited DATE OF EXAM: 12/20/2022 COMPARISON: NONE CLINICAL INDICATION: Male, 62 years old with history of Z95.828 PRESENCE OF OTHER VASCULAR IMPLANTS A ND GR; Stent patency had tips procedure in 05/2022 TECHNIQUE: Multiple sonographic images of the right upper quadrant are obtained. FINDINGS: EXAM MEASUREMENTS: Liver Length: 11 cm Gallbladder Wall: .3 cm CBD: .3 cm Right Kidney: 11.4 x 6.4 x 5.1 cm [employer] NOTES: Pancreas: Obscured by bowel gas Liver: Increased attenuation Gallbladder: No stones seen Evidence for sonographic Milan's sign: no CBD: Limited due to bowel gas Right Kidney: No hydronephrosis or masses seen IMPRESSION: No discrete abnormality seen.
== END | disposition home or self-care (01) ==
LOC: RADUSWWP 08:47
PROVIDERS: ATTEND Student in an Organized Health Care Education/Training Program
DX: Z95.828 Presence of other vascular implants and grafts (principal)
CPT/HCPCS: 76705

== ENCOUNTER 2024-05-16 09:10 | Emergency (ER) | payer OTHER, MEDICARE ==
[2024-05-16 09:17] VITALS: RESP 18
--- NOTE | 2024-05-16 09:24 | ED ---
Altered Mental Status HPI - General Chief Complaint: Altered Mental Status Stated Complaint: Fall/AMS Time Seen by Provider: 05/16/24 09:11 Source: family, EMS, RN notes reviewed Mode of arrival: EMS Limitations: no limitations, altered mental status - History of Present Illness Initial Comments: This is a 64-year-old male who presents to the emergency department for altered mental status. Patient's states that he has been confused since sometime last evening. He has a history of hepatic cirrhosis and had a TIPS procedure previously. Currently follows with [facility]. He last saw them in November of this year. states that everything with his liver has been stable. He becomes confused on occasions due to hepatic encephalopathy. His states that he is usually able to have a bowel movement and flush out the toxins. However, he had a bowel movement this morning and remained confused, which is not usual for him. This prompted his to call EMS. States that he did fall 4 days ago, but it is unclear if he hit his head or sustain any other injuries. His was out of town when this occurred and patient is currently unable to advise if he hit his head or injured anything. Not taking any blood thinners. Patient currently only A&O x 1. He is very fidgety and uncooperative. MD Complaint: altered mental status, confusion - Related Data Home Medications Medication Instructions Recorded Confirmed Folic Acid 1 mg PO DAILY 09/21/21 09/10/22 Furosemide [Lasix] 40 mg PO DAILY 09/21/21 09/10/22 buPROPion XL [Wellbutrin XL] 150 mg PO DAILY 03/08/22 09/10/22 Cholecalciferol [Vitamin D3 (25 50 mcg PO DAILY 04/09/22 09/10/22 Mcg = 1000 Iu)] Acetaminophen [Tylenol] 650 mg PO Q6H PRN 09/10/22 09/10/22 Ferrous Sulfate [Iron (65 MG 325 mg PO DAILY 09/10/22 09/10/22 Elemental)] Midodrine HCl [ProAmatine] 10 mg PO TID 09/10/22 09/10/22 Omeprazole 20 mg PO DAILY 09/10/22 09/10/22 Rifaximin [Xifaxan] 550 mg PO BID 09/10/22 09/10/22 Spironolactone [Aldactone] 50 mg PO DAILY 09/10/22 09/10/22 Warfarin [Coumadin] 3 mg PO HS 09/10/22 09/10/22 metOLazone [Zaroxolyn] 2.5 mg PO MOWEFR 09/10/22 09/10/22 Previous Rx's Medication Instructions Recorded Lactulose [Cephulac] 30 gm PO TID #3000 ml 09/11/22 Allergies Allergy/AdvReac Type Severity Reaction Status Date / Time heparin AdvReac Anaphylaxis Verified 05/16/24 09:17 lisinopril AdvReac Rapid Verified 09/10/22 16:23 Heart Rate/itching Review of Systems ROS Statement: Those systems with pertinent positive or pertinent negative responses have been documented in the HPI. ROS Other: All systems not noted in ROS Statement are negative. Past Medical History Past Medical History: Hypertension, Liver Disease, Osteoarthritis (OA) Additional Past Medical History / Comment(s): ascites TIPS May 21 History of Any Multi-Drug Resistant Organisms: None Reported Past Surgical History: No Surgical Hx Reported Additional Past Surgical History / Comment(s): COLONOSCOPY, paracentesis, liver stent insertion 2022 Hernia removal and bowel resection Past Anesthesia/Blood Transfusion Reactions: No Reported Reaction Past Psychological History: No Psychological Hx Reported Smoking Status: Current every day smoker Past Alcohol Use History: None Reported Past Drug Use History: None Reported - Past Family History Mother Family Medical History: Cancer Brother(s) Family Medical History: Cancer General Exam Limitations: altered mental status General appearance: alert Head exam: Present: atraumatic, normocephalic, normal inspection Eye exam: Present: normal appearance, PERRL, EOMI. Absent: scleral icterus, conjunctival injection, periorbital swelling Respiratory exam: Present: normal lung sounds bilaterally. Absent: respiratory distress, wheezes, rales, rhonchi, stridor Cardiovascular Exam: Present: regular rate, normal rhythm, normal heart sounds. Absent: systolic murmur, diastolic murmur, rubs, gallop, clicks GI/Abdominal exam: Present: soft Neurological exam: Present: alert Skin exam: Present: warm, dry, intact. Absent: rash Course Vital Signs 05/16/24 05/16/24 05/16/24 09:14 10:30 12:03 Temperature 98.1 F 98 F Pulse Rate 62 62 60 Respiratory 18 18 18 Rate Blood Pressure 129/88 145/75 O2 Sat by Pulse 99 98 96 Oximetry Medical Decision Making - Medical Decision Making This is a 64 year old male who presents to the emergency department for altered mental status. Was pt. sent in by a medical professional or institution? @ -No Did you speak to anyone other than the patient for history? @ -His and EMS provided all of the history. Did you review nursing and triage notes? @ -Yes, and I agree, it is accurate with regards to the patient's symptoms. Were old charts reviewed? @ -No Differential Diagnosis? @ -Differential Altered Mental Status: Hypoglycemia, DKA, hypercapnia, ETOH, overdose, CO poisoning, trauma, myxedema coma, HTN encephalopathy, infection, encephalitis, psychosis, intercranial hemorrhage, hepatic encephalopathy, meningitis, CVA, this is not meant to be an all-inclusive list EKG interpreted by me (3pts min.)? @ -EKG interpreted by me demonstrating the following: Sinus rhythm. Ventricular rate 63 bpm, AL interval 183 ms, QRS duration 106 ms, QTc 463 ms. X-rays interpreted by me (1pt min.)? @ -Chest x-ray obtained. My interpretation identifies a possible posterior left lower lobe infiltrate. CT interpreted by me (1pt min.)? @ -CT scan of the brain obtained. My interpretation identifies no mass effect. U/S interpreted by me (1pt. min.)? @ -Not obtained What testing was considered but not performed? (CT, X-rays, U/S, labs)? Why? @ -None What meds were considered but not given? Why? @ -None Did you discuss the management of the patient with other professionals? @ -No Did you reconcile home meds? @ -No Was smoking cessation discussed for >3mins.? @ -No Was critical care preformed (if so, how long)? @ -No Were there social determinants of health that impacted care today? How? (Homelessness, low income, unemployed, alcoholism, drug addiction, sethi sportation, low edu. Level, literacy, decrease access to med. care, group home, rehab)? @ -No Was there de-escalation of care discussed even if they declined? (Discuss DNR or withdrawal of care, Hospice)? @ -No What co-morbidities impacted this encounter? (DM, HTN, Smoking, COPD, CAD, Cancer, CVA, Hep., AIDS, mental health diagnosis, sleep apnea, morbid obesity)? @ -Liver disease, HTN Was patient admitted / discharged? @ -Transferred. Lab work demonstrates mild leukocytosis. He has hyponatremia with a sodium of 127 and signs of dehydration with a BUN of 38, creatinine of 1.29, and GFR of 58. He also has hypokalemia with a potassium of 2.9. Ammonia 65. Urinalysis and U tox negative. 1 L of IV fluids, 40 mEq of K-Dur, and 20 mEq of potassium chloride administered. Chest x-ray obtained demonstrating a p ossible posterior left lower lobe infiltrate. Blood culture subsequently obtained and he was given 2 g of Rocephin and 500 mg of azithromycin. 30 g of lactulose administered for elevated ammonia. CT scan of the brain performed as well. Radiologist advised that there could be a couple of tiny left hyperdensities that appear extra axial and he cannot exclude a subarachnoid or subdural hemorrhage. Imaging reviewed with ED attending, Dr. Mcarthur, who was not overly impressed with this. However, given this finding patient unable to be admitted at this facility. Patient subsequently transferred to [facility] via EMS in stable condition. Dr. Shearer is the accepting ED provider. Case discussed with ED attending, Dr. Mcarthur. Undiagnosed new problem with uncertain prognosis? @ -None Drug Therapy requiring intensive monitoring for toxicity (Heparin, Nitro, Insulin, Cardizem)? @ -None Were any procedures done? @ -None Diagnosis/symptom? @ -Altered mental status, hyponatremia, JOSELIN, hypokalemia, possible pneumonia, hepatic encephalopathy Acute, or Chronic, or Acute on Chronic? @ -Acute Uncomplicated (without systemic symptoms) or Complicated (systemic symptoms)? @ -Complicated Side effects of treatment? @ -None Exacerbation, Progression, or Severe Exacerbation] @ -Not applicable Poses a threat to life or bodily function? @ -Yes - Lab Data Result diagrams: 05/16/24 09:30 05/16/24 09:30 Lab Results 05/16/24 05/16/24 05/16/24 Range/Units 09:30 09: 09:30 WBC 11.6 H (3.8-10.6) k/uL RBC 4.53 (4.30-5.90) m/uL Hgb 15.8 (13.0-17.5) gm/dL Hct 44.4 (39.0-53.0) % MCV 98.2 (80.0-100.0) fL MCH 34.8 (25.0-35.0) pg MCHC 35.5 (31.0-37.0) g/dL RDW 12.8 (11.5-15.5) % Plt Count 178 (150-450) k/uL MPV 7.4 Neutrophils % 64 % Lymphocytes % 17 % Monocytes % 10 % Eosinophils % 5 % Basophils % 1 % Neutrophils # 7.4 (1.3-7.7) k/uL Lymphocytes # 2.0 (1.0-4.8) k/uL Monocytes # 1.2 H (0-1.0) k/uL Eosinophils # 0.6 (0-0.7) k/uL Basophils # 0.1 (0-0.2) k/uL PT 11.9 (10.0-12.5) sec INR 1.1 (<1.2) APTT 25.0 (22.0-30.0) sec Sodium (137-145) mmol/L Potassium (3.5-5.1) mmol/L Chloride (98-107) mmol/L Carbon Dioxide (22-30) mmol/L Anion Gap mmol/L BUN (9-20) mg/dL Creatinine (0.66-1.25) mg/dL Est GFR (CKD-EPI)AfAm (>60 ml/min/1.73 sqM) Est GFR (CKD-EPI)NonAf (>60 ml/min/1.73 sqM) Glucose (74-99) mg/dL POC Glucose (mg/dL) (70-110) mg/dL POC Glu Studio Grip ID Calcium (8.4-10.2) mg/dL Phosphorus (2.5-4.5) mg/dL Magnesium (1.6-2.3) mg/dL Total Bilirubin (0.2-1.3) mg/dL AST (17-59) U/L ALT (4-49) U/L Alkaline Phosphatase (38-126) U/L Ammonia (<30) umol/L Troponin I (0.000-0.034) ng/mL Total Protein (6.3-8.2) g/dL Albumin (3.5-5.0) g/dL Urine Color Light Yellow Urine Appearance Clear (Clear) Urine pH 7.0 (5.0-8.0) Ur Specific [place] 1.011 (1.001-1.035) Urine Protein Negative (Negative) Urine Glucose (UA) Negative (Negative) Urine Ketones Negative (Negative) Urine Blood Negative (Negative) Urine Nitrite Negative (Negative) Urine Bilirubin Negative (Negative) Urine Urobilinogen <2.0 (<2.0) mg/dL Ur Leukocyte Esterase Negative (Negative) Urine Opiates Screen (NotDetected) Ur Oxycodone Screen (NotDetected) Urine Methadone Screen (NotDetected) Ur Barbiturates Screen (NotDetected) U Tricyclic Antidepress (NotDetected) Ur Phencyclidine Scrn (NotDetected) Ur Amphetamines Screen (NotDetected) U Methamphetamines Scrn (NotDetected) U Benzodiazepines Scrn (NotDetected) Urine Cocaine Screen (NotDetected) U Marijuana (THC) Screen (NotDetected) 05/16/24 05/16/24 05/16/24 Range/Units 09:30 09:30 09:30 WBC (3.8-10.6) k/uL RBC (4.30-5.90) m/uL Hgb (13.0-17.5) gm/dL Hct (39.0-53.0) % MCV (80.0-100.0) fL MCH (25.0-35.0) pg MCHC (31.0-37.0) g/dL RDW (11.5-15.5) % Plt Count (150-450) k/uL MPV Neutrophils % % Lymphocytes % % Monocytes % % Eosinophils % % Basophils % % Neutrophils # (1.3-7.7) k/uL Lymphocytes # (1.0-4.8) k/uL Monocytes # (0-1.0) k/uL Eosinophils # (0-0.7) k/uL Basophils # (0-0.2) k/uL PT (10.0-12.5) sec INR (<1.2) APTT (22.0-30.0) sec Sodium 127 L (137-145) mmol/L Potassium 2.9 L (3.5-5.1) mmol/L Chloride 88 L (98-107) mmol/L Carbon Dioxide 33 H (22-30) mmol/L Anion Gap 6 mmol/L BUN 38 H (9-20) mg/dL Creatinine 1.29 H (0.66-1.25) mg/dL Est GFR (CKD-EPI)AfAm 67 (>60 ml/min/1.73 sqM) Est GFR (CKD-EPI)NonAf 58 (>60 ml/min/1.73 sqM) Glucose 103 H (74-99) mg/dL POC Glucose (mg/dL) (70-110) mg/dL POC Glu Studio Grip ID Calcium 9.2 (8.4-10.2) mg/dL Phosphorus 3.6 (2.5-4.5) mg/dL Magnesium 1.8 (1.6-2.3) mg/dL Total Bilirubin 2.5 H (0.2-1.3) mg/dL AST 57 (17-59) U/L ALT 42 (4-49) U/L Alkaline Phosphatase 161 H (38-126) U/L Ammonia 65 H (<30) umol/L Troponin I 0.023 (0.000-0.034) ng/mL Total Protein 7.5 (6.3-8.2) g/dL Albumin 4.3 (3.5-5.0) g/dL Urine Color Urine Appearance (Clear) Urine pH (5.0-8.0) Ur Specific [place] (1.001-1.035) Urine Protein (Negative) Urine Glucose (UA) (Negative) Urine Ketones (Negative) Urine Blood (Negative) Urine Nitrite (Negative) Urine Bilirubin (Negative) Urine Urobilinogen (<2.0) mg/dL Ur Leukocyte Esterase (Negative) Urine Opiates Screen (NotDetected) Ur Oxycodone Screen (NotDetected) Urine Methadone Screen (NotDetected) Ur Barbiturates Screen (NotDetected) U Tricyclic Antidepress (NotDetected) Ur Phencyclidine Scrn (NotDetected) Ur Amphetamines Screen (NotDetected) U Methamphetamines Scrn (NotDetected) U Benzodiazepines Scrn (NotDetected) Urine Cocaine Screen (NotDetected) U Marijuana (THC) Screen (NotDetected) 05/16/24 05/16/24 Range/Units 09:30 10:40 WBC (3.8-10.6) k/uL RBC (4.30-5.90) m/uL Hgb (13.0-17.5) gm/dL Hct (39.0-53.0) % MCV (80.0-100.0) fL MCH (25.0-35.0) pg MCHC (31.0-37.0) g/dL RDW (11.5-15.5) % Plt Count (150-450) k/uL MPV Neutrophils % % Lymphocytes % % Monocytes % % Eosinophils % % Basophils % % Neutrophils # (1.3-7.7) k/uL Lymphocytes # (1.0-4.8) k/uL Monocytes # (0-1.0) k/uL Eosinophils # (0-0.7) k/uL Basophils # (0-0.2) k/uL PT (10.0-12.5) sec INR (<1.2) APTT (22.0-30.0) sec Sodium (137-145) mmol/L Potassium (3.5-5.1) mmol/L Chloride (98-107) mmol/L Carbon Dioxide (22-30) mmol/L Anion Gap mmol/L BUN (9-20) mg/dL Creatinine (0.66-1.25) mg/dL Est GFR (CKD-EPI)AfAm (>60 ml/min/1.73 sqM) Est GFR (CKD-EPI)NonAf (>60 ml/min/1.73 sqM) Glucose (74-99) mg/dL POC Glucose (mg/dL) 106 (70-110) mg/dL POC Glu Studio Grip ID [facility] Calcium (8.4-10.2) mg/dL Phosphorus (2.5-4.5) mg/dL Magnesium (1.6-2.3) mg/dL Total Bilirubin (0.2-1.3) mg/dL AST (17-59) U/L ALT (4-49) U/L Alkaline Phosphatase (38-126) U/L Ammonia (<30) umol/L Troponin I (0.000-0.034) ng/mL Total Protein (6.3-8.2) g/dL Albumin (3.5-5.0) g/dL Urine Color Urine Appearance (Clear) Urine pH (5.0-8.0) Ur Specific [place] (1.001-1.035) Urine Protein (Negative) Urine Glucose (UA) (Negative) Urine Ketones (Negative) Urine Blood (Negative) Urine Nitrite (Negative) Urine Bilirubin (Negative) Urine Urobilinogen (<2.0) mg/dL Ur Leukocyte Esterase (Negative) Urine Opiates Screen Not Detected (NotDetected) Ur Oxycodone Screen Not Detected (NotDetected) Urine Methadone Screen Not Detected (NotDetected) Ur Barbiturates Screen Not Detected (NotDetected) U Tricyclic Antidepress Not Detected (NotDetected) Ur Phencyclidine Scrn Not Detected (NotDetected) Ur Amphetamines Screen Not Detected (NotDetected) U Methamphetamines Scrn Not Detected (NotDetected) U Benzodiazepines Scrn Not Detected (NotDetected) Urine Cocaine Screen Not Detected (NotDetected) U Marijuana (THC) Screen Not Detected (NotDetected) - Radiology Data Radiology results: report reviewed, image reviewed Disposition Clinical Impression: Subdural hemorrhage, Pneumonia, Hepatic encephalopathy, Hypokalemia, JOSELIN (acute kidney injury) Disposition: OTHER INSTITUTION NOT DEFINED Referrals: Kimi Mace, [facility] [REFERRING] - 1-2 days - Out of Hospital Transfer - Req. Specs Out of Hospital Transfer - Requested Specifics: Other Emergency Center ([facility])
[2024-05-16 09:42] LABS: Basophils # (A) 0.1 k/uL (0-0.2); Basophils % (A) 1 %; Eosinophils # (A) 0.6 k/uL (0-0.7); Eosinophils % (A) 5 %; HCT 44.4 % (39.0-53.0); HGB 15.8 gm/dL (13.0-17.5); Lymphocytes % (A) 17 %; MCH 34.8 pg (25.0-35.0); MCHC 35.5 g/dL (31.0-37.0); MCV 98.2 fL (80.0-100.0); Mean Platelet Volume 7.4; Monocytes # (A) 1.2 k/uL (0-1.0); Monocytes % (A) 10 %; Neutrophils # (A) 7.4 k/uL (1.3-7.7); Neutrophils % (A) 64 %; Platelet Count 178 k/uL (150-450); RBC 4.53 m/uL (4.30-5.90); RDW 12.8 % (11.5-15.5); WBC 11.6 k/uL (3.8-10.6)
[2024-05-16 09:44] LABS: Appearance,Urine Clear (Clear); Bilirubin,Urine Negative (Negative); Blood,Urine Negative (Negative); Color,Urine Light Yellow; Glucose,Urine (UA) Negative (Negative); Ketones,Urine Negative (Negative); Leukocyte Esterase,Urine Negative (Negative); Nitrite,Urine Negative (Negative); Protein,Urine Negative (Negative); Specific Gravity,Urine 1.011 (1.001-1.035); Urobilinogen,Urine <2.0 mg/dL (<2.0)
[2024-05-16 09:51] LABS: INR 1.1 (<1.2); Prothrombin Time 11.9 sec (10.0-12.5)
[2024-05-16 09:53] LABS: ALT 42 U/L (4-49); AST 57 U/L (17-59); African American GFR (CKD) 67 (>60 ml/min/1.73 sqM); Albumin 4.3 g/dL (3.5-5.0); Alkaline Phosphatase 161 U/L (38-126); Anion Gap 6 mmol/L; Blood Urea Nitrogen 38 mg/dL (9-20); Calcium 9.2 mg/dL (8.4-10.2); Carbon Dioxide 33 mmol/L (22-30); Chloride 88 mmol/L (98-107); Glucose 103 mg/dL (74-99); Magnesium 1.8 mg/dL (1.6-2.3); Non-African American GFR(CKD) 58 (>60 ml/min/1.73 sqM); Phosphorus 3.6 mg/dL (2.5-4.5); Potassium 2.9 mmol/L (3.5-5.1); Sodium 127 mmol/L (137-145); Total Bilirubin 2.5 mg/dL (0.2-1.3); Total Protein 7.5 g/dL (6.3-8.2)
[2024-05-16 09:55] LABS: Amphetamine Screen,Urine Not Detected (NotDetected); Barbiturate Screen,Urine Not Detected (NotDetected); Benzodiazepines Screen,Urine Not Detected (NotDetected); Cocaine Screen,Urine Not Detected (NotDetected); Methadone Screen, Urine Not Detected (NotDetected); Opiate Screen,Urine Not Detected (NotDetected); Oxycodone Screen, Urine Not Detected (NotDetected); Phencyclidine Screen,Urine Not Detected (NotDetected); Tricyclic Antidepressant,Urine Not Detected (NotDetected); Urn Cannabinoid Scrn Not Detected (NotDetected)
[2024-05-16] MEDS: SODIUM CHLORIDE 0.9% 1,000 ML IV STA (10:31)
--- NOTE | 2024-05-16 10:32 | XR ---
EXAMINATION TYPE: XR chest 2V DATE OF EXAM: 05/16/2024 10:19 AM COMPARISON: None. CLINICAL INDICATION: Male, 64 years old with history of altered mental status, TECHNIQUE: XR chest 2V view(s) obtained. FINDINGS: The heart size is normal. The pulmonary vasculature is normal. . There is questionable left lower lobe infiltrate. Correlate for some mild subsegmental atelectasis . Remaining portions of the lung morse appear clear IMPRESSION: 1. There may be some mild posterior left lower lobe subsegmental atelectasis or early pneumonia. Foll ow-up can be performed as clinically indicated [facility], , 05/16/2024 10:30 AM
[2024-05-16] MEDS: POTASSIUM CHLORIDE ER 20 MEQ TAB.ER PO STA (10:33)
[2024-05-16] MEDS: LACTULOSE 20 GM/30 ML CUP PO ONE (10:36)
[2024-05-16] MEDS: SODIUM CHLORIDE 0.9% 500 ML 500 ML IV STA (10:41)
[2024-05-16 10:42] LABS: Glucose,Whole Blood 106 mg/dL (70-110)
--- NOTE | 2024-05-16 10:51 | CT ---
EXAMINATION TYPE: CT brain wo con DATE OF EXAM: 05/16/2024 10:30 AM COMPARISON: 09/10/2022 CLINICAL INDICATION: Male, 64 years old with history of Altered mental status, AMS, fall approximatel y 4 days prior TECHNIQUE: CT of the brain is performed utilizing 3 mm thick sections through the posterior fossa and 3 mm thick sections through the remaining calvarium. Study is performed within 24 hours of arrival to the hospital. Contrast used: mL of , (none if empty) CT DLP: 1154.4 mGycm, Automated exposure control for dose reduction was used. FINDINGS: There is a tiny stone hyperdensity along the left temporal region. This could be a vessel. Tiny subdu ral could be considered. Correlate with the patient's history. Series 201 image 27. No significant ma ss effect on the adjacent temporal lobe is evident. There is an additional area of slight increased d ensity on the left, series 202 image 24. Small amount of hemorrhage is not excluded this level. This report was called and case discussed with emergency room physician by Dr. Beckwith at the time of inte rpretation. No mass lesion is evident. No acute infarcts are evident. There is. Ventricular white matter hypodensity, likely on the basis of chronic white matter ischemic change. There may be some prior ischemic change along left watershed r egion related Ventricles and sulci are mildly prominent for the patient age. Paranasal sinuses and mastoid air cells within the [id number] are clear. IMPRESSION: 1. Couple of tiny left hyperdensities which appear to be extra-axial. Tiny amount of subarachnoid o r subdural hemorrhage could be considered. 2. Chronic appearing periventricular white matter ischemic type changes 3. MRI can be utilized for additional evaluation. [facility], , 05/16/2024 10:48 AM
[2024-05-16] MEDS: POTASSIUM CHLORIDE 20 MEQ in WATER FOR INJECTION 1 100ML.BAG IVPB STA (10:52)
[2024-05-16] MEDS: cefTRIAXone IN SWFI 1,000 MG/10 ML SYRINGE IVP STA ×2 (11:44→11:45)
[2024-05-16] MEDS: AZITHROMYCIN 500 MG in SODIUM CHLORIDE 0.9% 250 ML IVPB STA (11:56)
[2024-05-16 12:03] VITALS: BP 145/75; PULSE 60; TEMP 98
[2024-05-16] MEDS: diphenhydrAMINE 50 MG/ML 1 ML VIAL IVP STA (12:04)
== END 2024-05-16 12:24 | disposition other institution (70) ==
LOC: EC 09:10
DX: J18.9 Pneumonia, unspecified organism (principal); K76.82 Hepatic encephalopathy; N17.9 Acute kidney failure, unspecified; E87.6 Hypokalemia; I62.01 Nontraumatic acute subdural hemorrhage; I10 Essential (primary) hypertension; F17.200 Nicotine dependence, unspecified, uncomplicated; Z88.8 Allergy status to other drugs, medicaments and biological substances; Z88.5 Allergy status to narcotic agent
CPT/HCPCS: 36415; 93005; 80053; 82140; 83735; 84100; 84484; 85025; 85610; 85730; 81003; 87040; 80306; 71046; 70450; 99285; 96365; 96368; 96375 ×2; J1200; J3480; J0456; J0696